=== PATIENT | female | born 1960 | race Caucasian/White ===

== ENCOUNTER 2017-10-10 10:33 | Inpatient (IN) ==
[2017-10-10] MEDS ORDERED: IPRATROPIUM/ALBUTEROL 3 ML AMPUL.NEB NEB ONE ×3 (10:43→10:51)
--- NOTE | 2017-10-10 11:02 | Emergency Department Note ---
SOB HPI - General Chief Complaint: Shortness of Breath/Dyspnea Stated Complaint: SOB, Sepsis workup Time Seen by Provider: 10/10/17 10:40 Source: patient, RN notes reviewed Mode of arrival: ambulatory Limitations: no limitations - History of Present Illness 56-year-old female presents with 3 weeks of worsening shortness of breath. She has cough and sputum production. She was seen at Dr. Mansfield's office today and was flu positive. She has been on Levaquin for 10 days and prednisone as well. Her last prednisone was 3 days ago. She has been hospitalized for her lungs in the past. She has asthma but no COPD is documented. She has been using nebulizer treatments at home which have helped for short amount of time. She has had fevers at home as well for the last 3 weeks. She has had some nausea vomiting and diarrhea as well. She denies chest pain at this time. She is diaphoretic. She had a heart attack 17 years ago but has not had issues with it since. No history of congestive heart failure. She does have diabetes. She had bilateral pneumonia on chest x-ray on the . She has been on Plavix for 17 years since her HI. No stents placed - Related Data Previous Rx's Medication Instructions Recorded spironolactone 25 mg tablet 25 mg PO QDAY #90 tab 07/09/16 nitroglycerin 0.4 mg sublingual 0.4 mg SUBLINGUAL Q5MIN PRN #25 tab 10/31/16 tablet albuterol sulfate HFA 90 90 mcg INHALATION Q6H PRN #54 g 06/13/17 mcg/actuation aerosol inhaler simvastatin 20 mg tablet 20 mg PO QPM 90 Days #90 tab 06/13/17 gabapentin 100 mg capsule 300 mg PO TID #270 cap 06/16/17 Nebulizer #1 each 07/14/17 amlodipine 5 mg tablet 5 mg PO QDAY #90 tab 07/15/17 benazepril 10 mg tablet 10 mg PO QDAY #90 tab 07/15/17 cyanocobalamin (vit B-12) 1,000 1,000 mcg IM QMONTH #10 ml 07/15/17 mcg/mL injection solution furosemide 40 mg tablet 40 mg PO BID #180 tab 07/15/17 levothyroxine 75 mcg capsule 75 mcg PO QDAY #90 cap 07/15/17 pantoprazole 40 mg tablet,delayed 40 mg PO QDAY #90 tab 07/15/17 release atenolol 25 mg tablet 25 mg PO QDAY #90 tab 07/16/17 clopidogrel 75 mg tablet 75 mg PO QDAY #90 tab 07/16/17 albuterol sulfate concentrate 2.5 2.5 mg INHALATION Q4H PRN #90 each 08/18/17 mg/0.5 mL solution for nebulization budesonide 0.5 mg/2 mL suspension 0.5 mg INHALATION Q12H #60 ml 08/18/17 for nebulization conjugated estrogens 1.25 mg tablet 1.25 mg PO QDAY #90 tab 09/16/17 hydrocodone 10 mg-acetaminophen 2 tab PO TID PRN #90 tab 09/16/17 325 mg tablet syringe with needle 3 mL 25 x 1 See Dose Instructions .ROUTE 09/16/17 1/2" .MEDSUPPLY #15 each alprazolam 0.5 mg tablet 0.5 mg PO TID #90 tab 09/26/17 levofloxacin 750 mg tablet 750 mg PO Q24H 7 Days #7 tab 10/07/17 fluticasone 100 mcg-vilanterol 25 1 inh INHALATION Q24H #30 each 10/10/17 mcg/dose powder for inhalation ibuprofen 400 mg tablet 400 mg PO Q6H #360 tab 10/10/17 Allergies Allergy/AdvReac Type Severity Reaction Status Date / Time acetaminophen Allergy Unknown Nausea Verified 10/10/17 09:30 morphine Allergy Unknown Anaphylaxis Verified 10/10/17 09:30 Penicillins Allergy Unknown Anaphylaxis Verified 10/10/17 09:30 Tetracyclines Allergy Unknown Hives Verified 10/10/17 09:30 Review of Systems All systems ED: reviewed and negative except as stated. Past Medical History - Past Medical History Medical history: Reports: asthma, coronary artery disease, DM, hyperlipidemia, hypertension, hypothyroidism, myocardial infarction (17 years ago). Denies: atrial fibrillation Psychiatric history: Reports: no psych history [employer] history: Reports: non-contributory Surgical history ED: Reports: appendectomy, cholecystectomy, tonsillectomy Family history: Reports: non-contributory - Social History smoking status: Current every day smoker Physical Exam Limitations: no limitations General appearance: alert, other (tachypneic) Head: atraumatic Eye: Present: normal appearance. Absent: conjunctival injection Neck: Present: normal inspection, full ROM Chest: Present: normal inspection, symmetric chest wall rise Respiratory: Present: wheezes (throughout lungs she has expiratory wheezes with coarse lung sounds in the upper lobes.) Cardiovascular: Present: tachycardia, normal heart sounds Abdominal: Present: soft, normal bowel sounds. Absent: tenderness Extremities: Present: normal inspection, full ROM Neurological: Present: alert, oriented X3 Psychiatric: Present: anxious Skin: Present: warm, dry, intact Course Course Narrative: She requires 2 liters of O2. She will be admitted. Started on IV Zithromax and Solu-medrol Vital Signs Temperature 98.6 F 10/10/17 10:34 Pulse Rate 111 H 10/10/17 10:34 Respiratory Rate 22 10/10/17 10:34 Blood Pressure 125/62 10/10/17 10:34 Pulse Oximetry (%) 89 L 10/10/17 10:34 Temperature 98.6 F 10/10/17 10:34 Pulse Rate 88 10/10/17 13:11 Respiratory Rate 20 10/10/17 13:11 Blood Pressure 133/89 10/10/17 13:11 Pulse Oximetry (%) 91 10/10/17 13:11 Shortness of Breath/Dyspnea - MDM Narrative Medical decision making narrative: White count was normal, lactic acid was normal, troponin was negative. - Lab Data Lab Results 10/10/17 10/10/17 10/10/17 Range/Units 09:53 11:20 12:36 VBG Lactic Acid 1.9 (0.5-2.2) mmol/L Troponin T < 0.01 (0-0.03) ng/ml Urine Color Yellow Urine Appearance Clear Urine pH 5.0 (5.0-9.0) Ur Specific [place] 1.017 (1.000-1.035) Urine Protein Neg (NEG) mg/dL Urine Glucose (UA) Negative (NEG) mg/dL Urine Ketones Neg (NEG) mg/dL Urine Occult Blood Neg (<0.03) mg/dL Urine Nitrate Neg (NEG) Urine Bilirubin Neg (NEG) mg/dL Urine Urobilinogen Neg (NEG) mg/dL Ur Leukocyte Esterase Neg (NEG) /uL Ur Culture Indicated? No - Radiology Data Radiology results reviewed: Yes I reviewed the patient's radiology results. Pleural effusions with resolution of infiltrates - EKG Data EKG attestation: Yes I reviewed and interpreted this EKG. EKG results narrative: Normal EKG Disposition Pt seen by GUINEA PIG BREEDER/PA only: Yes Clinical Impression: Influenza, COPD exacerbation Disposition: Xfer As Inpt ([facility]) Condition: Fair Referrals: Kt Beck MD [Primary Care Provider] -
[2017-10-10] MEDS ORDERED: methylPREDNISolone SOD SUCC 125 MG/2 ML VIAL IV ONE (11:05)
[2017-10-10] MEDS ORDERED: AZITHROMYCIN 500 MG in DEXTROSE 5% IN WATER 250 ML IV ONE (11:11)
[2017-10-10] MEDS ORDERED: OSELTAMIVIR PHOSPHATE 75 MG CAPSULE PO ONE (11:13)
[2017-10-10] MEDS ORDERED: 0.9 % SODIUM CHLORIDE 1,000 ML IV ONE (11:30)
--- NOTE | 2017-10-10 12:23 | XRay Report ---
CLINICAL INFORMATION: Shortness of breath COMPARISON: 10/01/2017 FINDINGS: Heart size, mediastinum and pulmonary vessels are normal. Bilateral infiltrates or edema, seen on previous study, have resolved. Small bilateral pleural effusions persist. IMPRESSION: Interval resolution in bilateral infiltrate or edema. Small persistent bilateral pleural effusions Interpreted and Authenticated by: Cristopher Cornelius 10/10/17
[2017-10-10] MEDS ORDERED: IBUPROFEN 800 MG TABLET PO ONE (12:27)
[2017-10-10] MEDS ORDERED: IBUPROFEN 200 MG TABLET PO ONE (12:30)
[2017-10-10 12:51] LABS: Appearance,Urine CLEAR; Bilirubin,Urine NEG (NEG); Color,Urine YELLOW; Glucose,Urine (UA) NEGATIVE (NEG); Leukocyte Esterase,Urine NEG /uL (NEG); Protein,Urine NEG (NEG); Specific Gravity,Urine 1.017 (1.000-1.035); Urine Blood NEG mg/dL (<0.03); Urobilinogen,Urine NEG (NEG)
[2017-10-10] MEDS ORDERED: FUROSEMIDE 20 MG/2 ML VIAL IV ONE (13:44)
[2017-10-10] MEDS ORDERED: ACETAMINOPHEN 325 MG TABLET PO PRN (14:59)
[2017-10-10] MEDS ORDERED: MAGNESIUM HYDROXIDE 30 ML ORAL.SUSP PO PRN (14:59)
[2017-10-10] MEDS ORDERED: ALPRAZolam 0.5 MG TABLET PO PRN (14:59)
[2017-10-10] MEDS ORDERED: ONDANSETRON 4 MG/2 ML VIAL IV PRN (14:59)
[2017-10-10] MEDS: 0.9 % SODIUM CHLORIDE 10 ML SYRINGE IV SCH ×2 (15:43→20:55)
[2017-10-10] MEDS: HYDROcodone/APAP 10/325MG TABLET PO PRN ×2 (15:43→20:32)
[2017-10-10] MEDS: GABAPENTIN 300 MG CAPSULE PO SCH ×2 (15:44→20:33)
[2017-10-10] MEDS: IPRATROPIUM/ALBUTEROL 3 ML AMPUL.NEB NEB SCH ×3 (16:01→23:25)
[2017-10-10] MEDS ORDERED: predniSONE 20 MG TABLET PO SCH (18:00)
[2017-10-10] MEDS: guaiFENesin/CODEINE 10 ML UDC PO PRN ×2 (18:29→22:52)
--- NOTE | 2017-10-10 20:43 | Internal Med History&Physical ---
Medical - H&P: [facility] Patient information: Note initiated : 10/10/17 at 8:08 pm Service Date, if different from initiated Date: [] Patient: Esperanza Irwin a 56 y/o F admitted on 10/10/17 for SOB, cough and general malaise. History of present illness: Ms. Irwin is a 56 year old F, with multiple medical problems including asthma, presented with persistent and worsening SOB and cough. Patient states that she has been having these respiratory symptoms for the last 3 weeks, requiring [id number] nebulized treatments the last few days. Patient has recently finished a [id number]-sja-[id number] of levofloxacin. She denies fever, chills and pleuritic pain. Patient has problems with allergies and is on nebulized treatments 1-3 times daily. Patient has a dog and birds in the house. She also smokes up to 10 cigs daily. However, patient states that allergies are caused by pollen and other other allergens. She has had no flu shot. Her 4-year-old grandchild has had URI symptoms around the same time. - Constitutional Constitutional: Absent: chills, fever(s) - Cardiovascular Cardiovascular: Absent: chest pain - Respiratory Respiratory: Present: cough, dyspnea on exertion, wheezing, chest congestion - Genitourinary Genitourinary: Absent: dysuria - Musculoskeletal Musculoskeletal: Present: back pain - Psychiatric Psychiatric: Absent: depression Medical - H&P: H Medical history: Tobacco abuse (Acute 07/28/14) smoking Obstructive sleep apnea (Acute) Pneumonia (Acute 10/19/14) Patellar fracture (Acute) Obesity (Acute) Myocardial infarction acute (Acute) Morbid obesity (Acute) Left knee pain (Acute) Hypothyroidism (acquired) (Acute 12/21/14) Hypertension, essential, benign (Acute) Hypertension (Acute 10/19/14) Hyperlipemia (Acute) Shingles rash (Acute 11/02/14) Herpes zoster dermatitis (Acute) eyelid Incisional hernia (Acute) Diverticulosis (Acute) Degenerative joint disease (Acute) (12/21/2014 Nixon) Left knee NOS Cough (Acute 10/19/14) History of colonic polyps (Acute) Cataract (Acute) incipient CAD (coronary artery disease) (Acute) Asthma with status asthmaticus (Acute 10/19/14) Asthma (Acute 12/21/14) Diabetes mellitus, type II (Ruled-out) Surgical history: Status post transposition of nerve (Acute) left ulnar nerve History of tonsillectomy (Acute) History of right knee surgery (Acute) NOS History of hysterectomy (Acute) KATY/BSO History of umbilical hernia repair (Acute) History of hernia repair (Acute) nos History of cholecystectomy (Acute) open History of (Acute) X3 History of right breast biopsy (Acute 06/04/13) History of left breast biopsy (Acute) History of appendectomy (Acute) History of adenoidectomy (Acute) Medical - H&P: Meds Home Medications Medication Instructions Recorded Confirmed Type spironolactone 25 mg tablet 25 mg PO QDAY #90 tab 07/09/16 10/10/17 Rx nitroglycerin 0.4 mg sublingual 0.4 mg SUBLINGUAL Q5MIN PRN #25 tab 10/31/1609/28 Rx tablet albuterol sulfate HFA 90 90 mcg INHALATION Q6H PRN #54 g 06/13/17 10/10/17 Rx mcg/actuation aerosol inhaler simvastatin 20 mg tablet 20 mg PO QPM 90 Days #90 tab 06/13/17 10/10/17 Rx gabapentin 100 mg capsule 300 mg PO TID #270 cap 06/16/17 10/10/17 Rx Nebulizer #1 each 07/14/17 10/10/17 Rx amlodipine 5 mg tablet 5 mg PO QDAY #90 tab 07/15/17 10/10/17 Rx benazepril 10 mg tablet 10 mg PO QDAY #90 tab 07/15/17 10/10/17 Rx cyanocobalamin (vit B-12) 1,000 1,000 mcg IM QMONTH #10 ml 07/15/17 10/10/17 Rx mcg/mL injection solution furosemide 40 mg tablet 40 mg PO BID #180 tab 07/15/17 10/10/17 Rx levothyroxine 75 mcg capsule 75 mcg PO QDAY #90 cap 07/15/17 10/10/17 Rx pantoprazole 40 mg tablet,delayed 40 mg PO QDAY #90 tab 07/15/17 10/10/17 Rx release atenolol 25 mg tablet 25 mg PO QDAY #90 tab 07/16/17 10/10/17 Rx clopidogrel 75 mg tablet 75 mg PO QDAY #90 tab 07/16/17 10/10/17 Rx albuterol sulfate concentrate 2.5 2.5 mg INHALATION Q4H PRN #90 each 08/18/17 Rx mg/0.5 mL solution for nebulization budesonide 0.5 mg/2 mL suspension 0.5 mg INHALATION Q12H #60 ml 08/18/17 Rx for nebulization conjugated estrogens 1.25 mg tablet 1.25 mg PO QDAY #90 tab 09/16/17 10/10/17 Rx hydrocodone 10 mg-acetaminophen 2 tab PO TID PRN #90 tab 09/16/17 10/10/17 Rx 325 mg tablet syringe with needle 3 mL 25 x 1 See Dose Instructions .ROUTE 09/16/17 10/10/17 Rx 1/2" .MEDSUPPLY #15 each alprazolam 0.5 mg tablet 0.5 mg PO TID #90 tab 09/26/17 10/10/17 Rx levofloxacin 750 mg tablet 750 mg PO Q24H 7 Days #7 tab 10/07/17 10/10/17 Rx fluticasone 100 mcg-vilanterol 25 1 inh INHALATION Q24H #30 each 10/10/17 Rx mcg/dose powder for inhalation ibuprofen 400 mg tablet 400 mg PO Q6H #360 tab 10/10/17 10/10/17 Rx Allergies Allergy/AdvReac Type Severity Reaction Status Date / Time acetaminophen Allergy Unknown Nausea Verified 10/10/17 09:30 morphine Allergy Unknown Anaphylaxis Verified 10/10/17 09:30 Penicillins Allergy Unknown Anaphylaxis Verified 10/10/17 09:30 Tetracyclines Allergy Unknown Hives Verified 10/10/17 09:30 codeine AdvReac Mild Itching Verified 10/10/17 16:53 Medical - H&P: Exam - Constitutional Vitals: Temp Pulse Resp BP Pulse Ox 99.4 F H 90 20 132/84 92 10/10/17 16:00 10/10/17 19:39 10/10/17 19:39 10/10/17 16:00 10/10/17 19:41 General appearance: mild distress, morbidly obese - Head Head exam: Present: normal inspection - Neck Neck exam: Present: normal inspection - Respiratory Respiratory exam: Present: prolonged expiratory phase, wheezes. Absent: accessory muscle use - Cardiovascular Cardiovascular exam: Present: normal rate and rhythm - GI/Abdominal GI/Abdominal exam: Present: normal bowel sounds - Extremities Exam Extremities exam: Present: pedal edema Medical - H&P: Reslt - Labs Labs: Cardiac Enzymes 10/10/17 Range/Units 09:53 Troponin T < 0.01 (0-0.03) ng/ml Urine 10/10/17 Range/Units 12:36 Urine Color Yellow Urine Appearance Clear Urine pH 5.0 (5.0-9.0) Ur Specific [place] 1.017 (1.000-1.035) Urine Protein Neg (NEG) mg/dL Urine Glucose (UA) Negative (NEG) mg/dL - ABG Interpretation Additional comments: pH 7.39 pCO2 43 pO2 66 sats 93% - Imaging and Cardiology Chest x-ray Additional comments: CXR: CLINICAL INFORMATION: Shortness of breath COMPARISON: 10/01/2017 FINDINGS: Heart size, mediastinum and pulmonary vessels are normal. Bilateral infiltrates or edema, seen on previous study, have resolved. Small bilateral pleural effusions persist. IMPRESSION: Interval resolution in bilateral infiltrate or edema. Small persistent bilateral pleural effusions Medical - H&P: A/P - Narrative A/P Narrative: 56-year-old female admitted 10/10 with following problems: + Exacerbation of asthma most likely related to URI/pneumonia possibly persistent asthma due to smoking and exposure to animal dander + Acute bronchitis/pneumonia most likely viral CXR showed resolving pneumonia + HTN + Morbid Obesity states that repeat sleepstudy didn't show THANH. + Chronic back pain PLAN: nebulized treatments Azithromycin empirically Continue home meds for HTN and chronic pain DVT prophylaxis: Lovenox Code status: full Medical - H&P: Qual - VTE Deep Vein Thrombosis/Pulmonary Embolism Present on Admission: No
[2017-10-10] MEDS ORDERED: FLUTICASONE/SALMETEROL 500/50 INHALER #14 INH SCH (21:00)
[2017-10-10] MEDS ORDERED: PANTOPRAZOLE 40 MG TABLET PO SCH (21:00)
[2017-10-11] MEDS: HYDROcodone/APAP 10/325MG TABLET PO PRN ×3 (00:37→23:23)
[2017-10-11] MEDS ORDERED: ONDANSETRON 4 MG/2 ML VIAL IV PRN (00:40)
[2017-10-11] MEDS ORDERED: MAGNESIUM HYDROXIDE 30 ML ORAL.SUSP PO PRN (00:40)
[2017-10-11] MEDS ORDERED: ACETAMINOPHEN 325 MG TABLET PO PRN (00:40)
[2017-10-11] MEDS ORDERED: HYDROmorphone 2 MG/ML VIAL ONE ×2 (00:51→03:57)
[2017-10-11] MEDS: HYDROmorphone 2 MG/ML VIAL IV PRN ×3 (04:04→18:56)
[2017-10-11] MEDS: 0.9 % SODIUM CHLORIDE 10 ML SYRINGE IV SCH ×3 (05:15→23:03)
[2017-10-11 05:17] LABS: Basophils # (Auto) 0 K/mcL (0.0-0.3); Basophils % (Auto) 0 % (0.0-2.0); Eosinophils # (Auto) 0.3 K/mcL (0.0-0.7); Eosinophils % (Auto) 3.3 % (0.0-7.0); Granulocytes % (Auto) 86.4 % (38.0-78.0); Lymphocytes # (Auto) 0.5 K/mcL (1.5-4.8); Lymphocytes % (Auto) 5.7 % (15.5-49.0); Mean Cell Volume 94.1 fL (80.0-100.0); Mean Corpuscular HGB Conc 32.8 g/dL (31.0-36.0); Mean Corpuscular Hemoglobin 30.9 pg (26.0-34.0); Monocytes # (Auto) 0.4 K/mcL (0.1-0.9); Monocytes % (Auto) 4.6 % (1.0-12.0); Platelet Count 237 K/mcL (140-440); RBC 4.97 M/mcL (4.00-5.20); Red Cell Distribution Width 14.8 % (11.5-14.5)
[2017-10-11 05:51] LABS: Albumin 4.1 gm/dL (3.2-5.2); Blood Urea Nitrogen 17 mg/dl (6-20)
[2017-10-11] MEDS ORDERED: PANTOPRAZOLE 40 MG TABLET PO SCH ×3 (07:30→09:00)
[2017-10-11] MEDS: ALPRAZolam 0.5 MG TABLET PO PRN ×2 (07:32→18:56)
[2017-10-11] MEDS: PANTOPRAZOLE 40 MG TABLET PO SCH (07:33)
[2017-10-11] MEDS: FUROSEMIDE 40 MG TABLET PO SCH ×2 (07:33→20:47)
[2017-10-11] MEDS: LEVOTHYROXINE 75 MCG TABLET PO SCH (07:33)
[2017-10-11] MEDS: predniSONE 20 MG TABLET PO SCH (07:38)
[2017-10-11] MEDS: ATENOLOL 50 MG TABLET PO SCH (07:44)
[2017-10-11] MEDS: ENOXAPARIN 40 MG/0.4 ML SYRINGE SQ SCH (07:45)
[2017-10-11] MEDS: CLOPIDOGREL 75 MG TABLET PO SCH (07:45)
[2017-10-11] MEDS: GABAPENTIN 300 MG CAPSULE PO SCH ×3 (07:45→20:47)
[2017-10-11] MEDS ORDERED: SODIUM POLYSTYRENE SULFONATE 15 GM/60 ML SUSPENSION PO ONE (08:11)
[2017-10-11] MEDS: IPRATROPIUM/ALBUTEROL 3 ML AMPUL.NEB NEB SCH ×5 (08:29→23:05)
[2017-10-11] MEDS: FLUTICASONE/SALMETEROL 500/50 INHALER #14 INH SCH ×2 (08:59→20:42)
[2017-10-11] MEDS ORDERED: BENAZEPRIL 10 MG TABLET PO SCH (09:00)
[2017-10-11] MEDS ORDERED: ENOXAPARIN 40 MG/0.4 ML SYRINGE SQ SCH (09:00)
[2017-10-11] MEDS ORDERED: CLOPIDOGREL 75 MG TABLET PO SCH (09:00)
[2017-10-11] MEDS ORDERED: amLODIPine 5 MG TABLET PO SCH ×2 (09:00)
[2017-10-11] MEDS ORDERED: ATENOLOL 25 MG TABLET PO SCH (09:00)
[2017-10-11] MEDS ORDERED: LEVOTHYROXINE SODIUM 75 MCG PO SCH (09:00)
[2017-10-11] MEDS ORDERED: LISINOPRIL 10 MG TABLET PO SCH (09:00)
[2017-10-11] MEDS ORDERED: FUROSEMIDE 40 MG TABLET PO SCH (09:00)
[2017-10-11] MEDS: amLODIPine 10 MG TABLET PO SCH (09:03)
[2017-10-11] MEDS: AZITHROMYCIN 250 MG in DEXTROSE 5% IN WATER 250 ML IV SCH (09:31)
[2017-10-11] MEDS: guaiFENesin/CODEINE 10 ML UDC PO PRN (15:05)
[2017-10-11] MEDS: IBUPROFEN 800 MG TABLET PO PRN ×2 (17:23→23:23)
--- NOTE | 2017-10-11 18:28 | Internal Med Progress Note ---
Medical - PN: Subj Patient information: Note initiated : 10/11/17 at 5:58 pm Service Date, if different from initiated Date: [] Patient: Esperanza Irwin a 56 y/o F admitted on 10/11/17 for SOB, and cough. History of present illness: Ms. Irwin is a 56 year old F, with multiple medical problems including asthma, presented with persistent and worsening SOB and cough. Patient states that she has been having these respiratory symptoms for the last 3 weeks, requiring [id number] nebulized treatments the last few days. Patient has recently finished a [id number] of levofloxacin. She denies fever, chills and pleuritic pain. Patient has problems with allergies and is on nebulized treatments 1-3 times daily. Patient has a dog and birds in the house. She also smokes up to 10 cigs daily. However, patient states that allergies are caused by pollen and other other allergens. She has had no flu shot. Her 4-year-old grandchild has had URI symptoms around the same time. Interval history: Admitted 10/11 with following problems: + Exacerbation of asthma most likely related to URI/pneumonia possibly persistent asthma due to smoking and exposure to animal dander + Acute bronchitis/pneumonia most likely viral CXR showed resolving pneumonia + HTN + Morbid Obesity states that repeat sleepstudy didn't show THANH. + Chronic back pain Overnight developed worsening SOB a/w high oxygen requirement to 15 L. Patient transferred to tele unit for closer observation, and BiPAP support October 11: Had stable night on BiPAP, got few hours sleep. This am, breathing better. Still requiring 8L oxygen via HFNC Minimal cough. Afebrile. - Constitutional Vitals: Vital Signs Temp Pulse Resp BP Pulse Ox 96.1 F L 65 24 H 115/75 93 10/11/17 15:30 10/11/17 15:23 10/11/17 15:30 10/11/17 15:30 10/11/17 15:30 Period Temp Pulse Resp BP Sys/Cortés Pulse Ox Last 24 Hr 96.1 F-98.0 F 65-92 14-95 96-154/43-103 88-95 Intake and Output 10/11/17 10/11/17 10/11/17 05:59 13:59 21:59 Intake Total 1050 / 1050 846 / 846 1320 / 1320 Output Total 550 / 550 150 / 150 Balance 500 / 500 846 / 846 1170 / 1170 Intake & Output: Intake & Output 10/11/17 10/11/17 10/11/17 05:59 13:59 21:59 Intake Total 1050 / 1050 846 / 846 1320 / 1320 Output Total 550 / 550 150 / 150 Balance 500 / 500 846 / 846 1170 / 1170 Intake: IV 246 / 246 Zithromax 250 mg In Dextrose 5% 246 / 246 in Water 250 ml @ 250 mls/hr IV Q24H [facility] Rx#:[id number] Oral 1050 / 1050 600 / 600 1320 / 1320 Output: Void Amount 550 / 550 150 / 150 Other: Meal Lunch Dinner Percent of Meal Consumed 50% 75% Feeding Ability Independent Stool Size Small Stool Color Brown Stool Consistency Soft # Voids 1 1 # Bowel Movements 1 General appearance: mild distress - Respiratory Respiratory exam: Present: prolonged expiratory phase, wheezes - Cardiovascular Cardiovascular exam: Present: normal rate and rhythm - GI/Abdominal GI/Abdominal exam: Present: normal bowel sounds, soft - Extremities Exam Extremities exam: Present: normal inspection Medical - PN: Obj Da - Labs CBC & Chem 7: 10/11/17 03:30 10/11/17 03:30 Labs: Abnormal Lab Results 10/11/17 10/11/17 03:30 03:30 Hgb 15.3 H RDW 14.8 H Gran % 86.4 H Lymph % (Auto) 5.7 L Lymph # (Auto) 0.5 L Sodium 131 L Potassium 5.9 H* Chloride 94 L Glucose 137 H Phosphorus 4.8 H Meds: Medications Acetaminophen (Tylenol) 650 mg PO Q6HP PRN PRN Reason: PAIN/FEVER > 101 Last Admin: 10/11/17 09:03 Dose: 650 mg Hydrocodone Bitart/Acetaminophen ([place] 10/325mg) 2 tab PO TIDP PRN PRN Reason: PAIN LEVEL 3-6 Albuterol/Ipratropium (Duoneb) 3 ml NEB [id number] LEXIE Last Admin: 10/11/17 15:22 Dose: 3 ml Alprazolam (Xanax) 0.5 mg PO TIDP PRN PRN Reason: Anxiety Last Admin: 10/11/17 07:32 Dose: 0.5 mg Amlodipine Besylate (Norvasc) 10 mg PO DAILY [facility] Last Admin: 10/11/17 09:03 Dose: 10 mg Atenolol (Tenormin) 50 mg PO DAILY [facility] Last Admin: 10/11/17 07:44 Dose: 50 mg Clopidogrel Bisulfate (Plavix) 75 mg PO QDAY [facility] Last Admin: 10/11/17 07:45 Dose: 75 mg Enoxaparin Sodium (Lovenox) 40 mg SQ DAILY [facility] Last Admin: 10/11/17 07:45 Dose: 40 mg Furosemide (Lasix) 40 mg PO BID [facility] Last Admin: 10/11/17 07:33 Dose: 40 mg Gabapentin (Neurontin) 300 mg PO TID [facility] Last Admin: 10/11/17 15:05 Dose: 300 mg Guaifenesin/Codeine Phosphate (Robitussin Ac) 10 ml PO Q4HP PRN PRN Reason: Cough Last Admin: 10/11/17 15:05 Dose: 10 ml Hydromorphone HCl (Dilaudid) 0 mg IV Q4HP PRN PRN Reason: PAIN LEVEL > 6 Last Admin: 10/11/17 07:36 Dose: 2 mg Azithromycin 250 mg/ Dextrose 250 mls @ 250 mls/hr IV Q24H [facility] Stop: 10/13/17 10:59 Last Infusion: 10/11/17 10:30 Dose: 250 mls/hr Ibuprofen (Motrin) 800 mg PO TIDP PRN PRN Reason: Headache Last Admin: 10/11/17 17:23 Dose: 800 mg [facility] Last Admin: 10/11/17 07:33 Dose: 75 mcg Magnesium Hydroxide (Milk Of Magnesia) 30 ml PO DAILYP PRN PRN Reason: Constipation Ondansetron HCl (Zofran) 4 mg IV Q6HP PRN PRN Reason: Nausea And Vomiting Pantoprazole [facility]ix) [facility] Last Admin: 10/11/17 07:33 Dose: 40 mg Prednisone (Prednisone) 40 mg PO QAMCC [facility] Last Admin: 10/11/17 07:38 Dose: 40 mg Fluticasone/Salmeterol (Advair 500-50 Diskus) 1 puff INH BID [facility] Last Admin: 10/11/17 08:59 Dose: Not Given Sodium Chloride (Saline Flush) 10 ml IV Q8 [place] Last Admin: 10/11/17 13:58 Dose: 10 ml Medical - PN: A/P - Time Spent With Patient Total time spent is greater than 50% in coordination of care (as documented) at patient's floor/unit and/or counseling patient: 25 - 35 minutes - Narrative A/P Narrative: + Exacerbation of asthma most likely related to URI/pneumonia possibly persistent asthma due to smoking and exposure to animal dander Continue neb treatment, prednisone, BIPAP as needed Check pro-BNP. R/O cardiac asthma. + Acute bronchitis/pneumonia most likely viral CXR showed resolving pneumonia Azithromycin continue + HTN Continue home meds + Morbid Obesity states that repeat sleepstudy didn't show THANH. + Chronic back pain Continue home meds + Hyperkalemia kayexelate given FU lab DVT prophylaxis: Lovenox Code status: Full Medical - PN: Qual - VTE Deep Vein Thrombosis/Pulmonary Embolism Present on Admission: No
[2017-10-12] MEDS: HYDROcodone/APAP 10/325MG TABLET PO PRN ×2 (04:31→19:33)
[2017-10-12] MEDS: IBUPROFEN 800 MG TABLET PO PRN (04:32)
[2017-10-12] MEDS: guaiFENesin/CODEINE 10 ML UDC PO PRN (04:37)
[2017-10-12 05:47] LABS: Albumin 3.7 gm/dL (3.2-5.2); proBNP 295.3 pg/ml (0-125)
[2017-10-12] MEDS: 0.9 % SODIUM CHLORIDE 10 ML SYRINGE IV SCH ×4 (05:58→20:10)
[2017-10-12] MEDS: HYDROmorphone 2 MG/ML VIAL IV PRN (07:15)
[2017-10-12] MEDS: ALPRAZolam 0.5 MG TABLET PO PRN ×2 (07:15→08:33)
[2017-10-12] MEDS: LEVOTHYROXINE 75 MCG TABLET PO SCH (07:19)
[2017-10-12] MEDS: IPRATROPIUM/ALBUTEROL 3 ML AMPUL.NEB NEB SCH ×5 (07:32→22:41)
[2017-10-12] MEDS: predniSONE 20 MG TABLET PO SCH (08:33)
[2017-10-12] MEDS: AZITHROMYCIN 250 MG in DEXTROSE 5% IN WATER 250 ML IV SCH (08:33)
[2017-10-12] MEDS: GABAPENTIN 300 MG CAPSULE PO SCH ×3 (08:34→20:10)
[2017-10-12] MEDS: PANTOPRAZOLE 40 MG TABLET PO SCH (08:34)
[2017-10-12] MEDS: CLOPIDOGREL 75 MG TABLET PO SCH (08:34)
[2017-10-12] MEDS: amLODIPine 10 MG TABLET PO SCH (08:35)
[2017-10-12] MEDS: ATENOLOL 50 MG TABLET PO SCH (08:35)
[2017-10-12] MEDS: ENOXAPARIN 40 MG/0.4 ML SYRINGE SQ SCH (08:35)
[2017-10-12] MEDS: FLUTICASONE/SALMETEROL 500/50 INHALER #14 INH SCH ×2 (08:35→20:22)
[2017-10-12] MEDS: FUROSEMIDE 40 MG TABLET PO SCH ×2 (08:37→20:10)
[2017-10-12] MEDS ORDERED: IBUPROFEN 800 MG TABLET PO PRN (10:52)
[2017-10-12] MEDS ORDERED: ACETAMINOPHEN 325 MG TABLET PO PRN (10:52)
--- NOTE | 2017-10-12 12:11 | Internal Med Progress Note ---
Medical - PN: Subj Patient information: Note initiated : 10/12/17 at 12:07 pm Service Date, if different from initiated Date: [] Patient: Esperanza Irwin 56 y/o F admitted on 10/11/17 for SOB, Sepsis workup. Interval history: Admitted 10/11 with following problems: + Exacerbation of asthma most likely related to URI/pneumonia possibly persistent asthma due to smoking and exposure to animal dander + Acute bronchitis/pneumonia most likely viral CXR showed resolving pneumonia + HTN + Morbid Obesity states that repeat sleepstudy didn't show THANH. + Chronic back pain Overnight developed worsening SOB a/w high oxygen requirement to 15 L. Patient transferred to tele unit for closer observation, and BiPAP support October 11: Had stable night on BiPAP, got few hours sleep. This am, breathing better. Still requiring 8L oxygen via HFNC Minimal cough. Afebrile. October 12: Still on 8L O2. Feeling slightly better. C/O CORONADO due to coughing Didn't want use the BIPAP last night. Hemodynamics stable Will transfer to med floor - Constitutional Vitals: Vital Signs Temp Pulse Resp BP Pulse Ox 97.1 F 84 18 96/59 92 10/12/17 08:00 10/12/17 08:00 10/12/17 08:00 10/12/17 08:00 10/12/17 08:00 Period Temp Pulse Resp BP Sys/Cortés Pulse Ox Last 24 Hr 96.1 F-97.4 F 65-84 18-24 96-130/59-75 90-95 Intake and Output 10/11/17 10/12/17 10/12/17 21:59 05:59 13:59 Intake Total 1320 / 1320 800 / 800 Output Total 150 / 150 750 / 750 Balance 1170 / 1170 50 / 50 Weight 297 lb Intake & Output: Intake & Output 10/11/17 10/12/17 10/12/17 21:59 05:59 13:59 Intake Total 1320 / 1320 800 / 800 Output Total 150 / 150 750 / 750 Balance 1170 / 1170 50 / 50 Weight 297 lb Intake: Oral 1320 / 1320 800 / 800 Output: Void Amount 150 / 150 750 / 750 Other: Meal Dinner Percent of Meal Consumed 75% Feeding Ability Independent Stool Size Small Stool Color Brown Stool Consistency Soft # Voids 1 # Bowel Movements 1 General appearance: mild distress, morbidly obese - Respiratory Respiratory exam: Present: prolonged expiratory phase. Absent: accessory muscle use - Cardiovascular Cardiovascular exam: Present: normal rate and rhythm - GI/Abdominal GI/Abdominal exam: Present: soft - Extremities Exam Extremities exam: Absent: calf tenderness Medical - PN: Obj Da - Labs CBC & Chem 7: 10/11/17 03:30 10/12/17 03:50 Labs: Abnormal Lab Results 10/12/17 10/11/17 10/11/17 03:50 03:30 03:30 Hgb 15.3 H RDW 14.8 H Gran % 86.4 H Lymph % (Auto) 5.7 L Lymph # (Auto) 0.5 L Sodium 131 L Potassium 5.2 H 5.9 H* Chloride 92 L 94 L Carbon Dioxide 32 H BUN 25 H Glucose 137 H Calcium 8.2 L Phosphorus 4.6 H 4.8 H NT-Pro-B Natriuret Pep 295.3 H Meds: Medications Acetaminophen (Tylenol) 650 mg PO Q6HP PRN PRN Reason: PAIN/FEVER > 101 Hydrocodone Bitart/Acetaminophen ([place] 10/325mg) 2 tab PO TIDP PRN PRN Reason: PAIN LEVEL 3-6 Albuterol/Ipratropium (Duoneb) 3 ml NEB [id number] [facility] Alprazolam (Xanax) 0.5 mg PO TIDP PRN PRN Reason: Anxiety Amlodipine Besylate (Norvasc) 10 mg PO DAILY [facility] Atenolol (Tenormin) 50 mg PO DAILY [facility] Azithromycin (Zithromax) 250 mg PO ONCE ONE Stop: 10/13/17 09:04 Clopidogrel Bisulfate (Plavix) 75 mg PO QDAY [facility] Enoxaparin Sodium (Lovenox) 40 mg SQ DAILY [facility] Furosemide (Lasix) 40 mg PO BID [facility] Gabapentin (Neurontin) 300 mg PO TID [facility] Guaifenesin/Codeine Phosphate (Robitussin Ac) 10 ml PO Q4HP PRN PRN Reason: Cough Ibuprofen (Motrin) 800 mg PO TIDP PRN PRN Reason: Headache Levothyroxine Sodium (Synthroid) 75 mcg PO QAMAC [facility] Magnesium Hydroxide (Milk Of Magnesia) 30 ml PO DAILYP PRN PRN Reason: Constipation Ondansetron HCl (Zofran Odt) 4 mg SL Q6HP PRN PRN Reason: Nausea And Vomiting Pantoprazole Sodium (Protonix) 40 mg PO QAMAC [facility] Prednisone (Prednisone) 40 mg PO QAMCC [facility] Fluticasone/Salmeterol (Advair 500-50 Diskus) 1 puff INH BID [facility] Sodium Chloride (Saline Flush) 10 ml IV Q8 [facility] Medical - PN: A/P - Time Spent With Patient Total time spent is greater than 50% in coordination of care (as documented) at patient's floor/unit and/or counseling patient: 25 - 35 minutes - Narrative A/P Narrative: + Exacerbation of asthma most likely related to URI/pneumonia. Finished course of Levofloxacin as outpt. CXR: resolved pneumonia possibly persistent asthma due to smoking and exposure to animal dander Continue neb treatment, prednisone, BIPAP as needed pro-BNP: wnl + Acute bronchitis/pneumonia most likely viral CXR showed resolving pneumonia Azithromycin continue + HTN Continue home meds + Morbid Obesity states that repeat sleepstudy didn't show THANH. + Chronic back pain Continue home meds + Hyperkalemia kayexelate given x / FU lab DVT prophylaxis: Lovenox Code status: Full Medical - PN: Qual - VTE Deep Vein Thrombosis/Pulmonary Embolism Present on Admission: No
[2017-10-12] MEDS: ONDANSETRON ODT 4 MG TABLET SL PRN (18:38)
[2017-10-12] MEDS ORDERED: KETOROLAC 30 MG/ML VIAL IV ONE (19:47)
[2017-10-12] MEDS ORDERED: ACETAMINOPHEN 1,000 MG/100 ML BOTTLE IV ONE (19:48)
[2017-10-12] MEDS ORDERED: KETOROLAC 30 MG/ML VIAL ONE (19:58)
[2017-10-12] MEDS ORDERED: FAMOTIDINE/PF 20 MG/2 ML VIAL IV ONE (19:58)
[2017-10-12] MEDS: FAMOTIDINE/PF 20 MG/2 ML VIAL IV SCH ×2 (20:09→21:12)
[2017-10-12] MEDS: OXYMETAZOLINE 1 SPRAY BOTTLE NAS SCH (20:10)
[2017-10-13] MEDS: KETOROLAC 15 MG/ML VIAL IV PRN ×4 (01:36→19:43)
[2017-10-13] MEDS: ONDANSETRON 4 MG/2 ML VIAL IV PRN ×3 (01:45→19:43)
[2017-10-13] MEDS: HYDROcodone/APAP 10/325MG TABLET PO PRN ×3 (02:48→14:44)
[2017-10-13] MEDS: guaiFENesin/CODEINE 10 ML UDC PO PRN (02:48)
[2017-10-13] MEDS: ACETAMINOPHEN 1,000 MG/100 ML BOTTLE IV PRN (06:01)
[2017-10-13] MEDS: 0.9 % SODIUM CHLORIDE 10 ML SYRINGE IV SCH ×3 (06:02→21:53)
[2017-10-13 06:44] LABS: Basophils # (Auto) 0 K/mcL (0.0-0.3); Basophils % (Auto) 0.2 % (0.0-2.0); Eosinophils # (Auto) 0.1 K/mcL (0.0-0.7); Eosinophils % (Auto) 1.5 % (0.0-7.0); Granulocytes % (Auto) 67.1 % (38.0-78.0); Lymphocytes # (Auto) 1.4 K/mcL (1.5-4.8); Lymphocytes % (Auto) 20.7 % (15.5-49.0); Mean Cell Volume 91.5 fL (80.0-100.0); Mean Corpuscular HGB Conc 32.5 g/dL (31.0-36.0); Mean Corpuscular Hemoglobin 29.8 pg (26.0-34.0); Monocytes # (Auto) 0.7 K/mcL (0.1-0.9); Monocytes % (Auto) 10.5 % (1.0-12.0); Platelet Count 178 K/mcL (140-440); RBC 4.88 M/mcL (4.00-5.20); Red Cell Distribution Width 13.5 % (11.5-14.5)
[2017-10-13 06:45] LABS: ALT/SGPT 72 U/l (0-40); Albumin 3.3 gm/dL (3.2-5.2); Albumin/Globulin Ratio 1.1 (1.0-2.3); Alkaline Phosphatase 52 U/L (39-117); Bilirubin,Direct < 0.2 mg/dL (0.0-0.3); Blood Urea Nitrogen 16 mg/dl (6-20); Gamma Glutamyl Transpeptidase 49 U/L (5-36); Uric Acid 4.4 mg/dL (2.5-8.0)
[2017-10-13] MEDS: LEVOTHYROXINE 75 MCG TABLET PO SCH (07:08)
[2017-10-13] MEDS: PANTOPRAZOLE 40 MG TABLET PO SCH (07:08)
[2017-10-13] MEDS: IPRATROPIUM/ALBUTEROL 3 ML AMPUL.NEB NEB SCH ×5 (07:30→23:37)
[2017-10-13] MEDS ORDERED: IOPAMIDOL 100 ML BOTTLE IV ONE (08:58)
[2017-10-13] MEDS ORDERED: AZITHROMYCIN 250 MG TABLET PO ONE (09:03)
[2017-10-13] MEDS: FUROSEMIDE 40 MG TABLET PO SCH ×2 (09:05→21:51)
[2017-10-13] MEDS: CLOPIDOGREL 75 MG TABLET PO SCH (09:05)
[2017-10-13] MEDS: ATENOLOL 50 MG TABLET PO SCH (09:05)
[2017-10-13] MEDS: amLODIPine 10 MG TABLET PO SCH (09:05)
[2017-10-13] MEDS: GABAPENTIN 300 MG CAPSULE PO SCH ×3 (09:05→21:51)
[2017-10-13] MEDS: ALPRAZolam 0.5 MG TABLET PO PRN ×2 (09:05→22:00)
[2017-10-13] MEDS: predniSONE 20 MG TABLET PO SCH (09:05)
[2017-10-13] MEDS: OXYMETAZOLINE 1 SPRAY BOTTLE NAS SCH ×2 (09:06→21:56)
[2017-10-13] MEDS: FLUTICASONE/SALMETEROL 500/50 INHALER #14 INH SCH ×2 (09:06→21:55)
[2017-10-13] MEDS: ENOXAPARIN 40 MG/0.4 ML SYRINGE SQ SCH (09:06)
--- NOTE | 2017-10-13 09:10 | Cat Scan Report ---
History: Sepsis and shortness of breath Findings: The face was imaged in axial plane without contrast. Coronal reformats were created. There is minor mucosal thickening along the floor left maxillary sinus. No air-fluid level is present. The right maxillary sinus is clear. The right lateral recess of the sphenoid sinus is nearly completely opacified. There is a hypoplastic lateral recess of the left sphenoid sinus. This is also nearly completely opacified. The central and dominant portion of the sphenoid sinus is clear and normally aerated. There is mild mucosal thickening along the truong of a couple ethmoid air cells bilaterally. Is also mucosal thickening in the inferior recess of the left frontal sinus. Right frontal sinus is clear. The mastoids are clear. Nasal septum is deviated to left. Kristina bullosa is seen in the right middle nasal turbinate. No abnormality seen within the orbits. No facial abscess is present. Impression: Moderate bilateral sphenoid sinusitis with minor ethmoid, left maxillary and left frontal sinusitis Interpreted and Authenticated by: Mic Rosales 10/13/17
--- NOTE | 2017-10-13 09:27 | Cat Scan Report ---
CLINICAL INFORMATION: Reason for Exam: hypoxia, Pulmonary embolism , sepsis COMPARISON: None TECHNIQUE: Axial images obtained through the chest. Intravenous contrast administration was administered, and scanning was performed during pulmonary arterial phase. Sagittally and coronally reformatted images were obtained. MIP reformatted images. FINDINGS: The pulmonary arteries are normal without evidence of emboli. The heart is normal in size and contour. There is a moderate amount calcified plaque in the left anterior descending and right coronary artery. There is milder involvement in the circumflex artery. The aorta is normal in caliber. There are eccentric plaques along the wall of the aortic arch. There is no dissection or aneurysm of the aorta. There is a mosaic pattern of groundglass alveolar infiltrates throughout much of the left upper lobe and lingula. There is minor involvement in the right upper lobe and medial basal segment left lower lobe. No lobar consolidation is present. There is minor emphysema in both upper lobes. There are three small well-circumscribed peripheral nodules laterally in the right upper lobe. The largest is pleural-based and measures 5 x 7 mm. Is seen on axial image #38. There are a few bands of scar or discoid atelectasis in the right middle lobe and posteriorly and medially in the right upper lobe. No pleural or pericardial effusion are present. The airways appear normal without intraluminal filling defects or abnormal thickening of the truong. Degenerative disc disease and arthritis are present throughout the thoracic spine. There is a large spur on the posterior border of the T7-8 disc which protrudes into the central canal. The degenerative changes have remained stable since the prior thoracic spine MRI done on 01/25/16. IMPRESSION: Groundglass alveolar infiltrates, predominantly involving the left upper lobe and lingula. This is a nonspecific pattern which can be seen with bacterial pneumonia, pneumocystis or cytomegalovirus. Other considerations would include the inflammatory phase of idiopathic pulmonary fibrosis, connective tissue disease such as lupus, eosinophilic pneumonia, sarcoidosis, hypersensitivity pneumonitis and bronchiolitis obliterans organizing pneumonia. Small subpleural nodules laterally in the right upper lobe. These are too small to characterize or biopsy but are more likely benign than malignant. Follow-up is recommended. Moderate atherosclerotic coronary artery disease Early stage of emphysema Interpreted and Authenticated by: Mic Rosales 10/13/17
--- NOTE | 2017-10-13 11:36 | Internal Med Progress Note ---
Medical - PN: Subj Patient information: Note initiated : 10/13/17 at 11:34 am Service Date, if different from initiated Date: [] Patient: Esperanza Irwin 56 y/o F admitted on 10/11/17 for SOB, Sepsis Workup/Exacerbation of Asthma. Chief Complaint: [] Interval history: Admitted 10/11 with following problems: + Exacerbation of asthma most likely related to URI/pneumonia possibly persistent asthma due to smoking and exposure to animal dander + Acute bronchitis/pneumonia most likely viral CXR showed resolving pneumonia + HTN + Morbid Obesity states that repeat sleepstudy didn't show THANH. + Chronic back pain Overnight developed worsening SOB a/w high oxygen requirement to 15 L. Patient transferred to tele unit for closer observation, and BiPAP support October 11: Had stable night on BiPAP, got few hours sleep. This am, breathing better. Still requiring 8L oxygen via HFNC Minimal cough. Afebrile. October 12: Still on 8L O2. Feeling slightly better. C/O CORONADO due to coughing Didn't want use the BIPAP last night. Hemodynamics stable Will transfer to med floor October 13 patient seen examined, no acute overnight events, still on oxygen bottle of xanax found with the patient , pt denies using these meds at hoem, but it seems that there were periods when she was difficult to arouse will not use IV narcotic pain meds and try to verify dosing of oral narcotis too ct chest done neg for pe, does show ? fibrosis, inflammation, infection . CT Sinus done shows sinusitis treated with antibiotics levoflox and zithromax. Procalcitonin is neg Will just use bactrim for sinusitis for now given she is complaining of symptoms , Will likely need repeat CT chest later to see if this is resolved She is still wheezing and needing high levels of oxygen. continue steroids and duonebs. Pertinent ROS: present headache, Denies chest pain, palpitations Present cough and shortness of breath Denies abdominal pain, nausea or vomiting. - Constitutional Vitals: Vital Signs Temp Pulse Resp BP Pulse Ox 98.4 F 78 18 146/78 94 10/13/17 06:15 10/13/17 08:25 10/13/17 08:25 10/13/17 06:15 10/13/17 08:25 Period Temp Pulse Resp BP Sys/Cortés Pulse Ox Last 24 Hr 95.4 F-98.7 F 71-94 12-28 118-169/78-100 90-96 Intake and Output 10/12/17 10/13/17 10/13/17 21:59 05:59 13:59 Intake Total 800 / 800 300 / 300 100 / 100 Output Total 1250 / 1250 350 / 350 Balance -450 / -450 -50 / -50 100 / 100 Weight 301 lb Intake & Output: Intake & Output 10/12/17 10/13/17 10/13/17 21:59 05:59 13:59 Intake Total 800 / 800 300 / 300 100 / 100 Output Total 1250 / 1250 350 / 350 Balance -450 / -450 -50 / -50 100 / 100 Weight 301 lb Intake: IV 100 / 100 100 / 100 Oral 800 / 800 200 / 200 Output: Void Amount 1050 / 1050 350 / 350 Emesis 200 / 200 Other: # Voids 1 1 Exam: Constitutional; Afebrile, cooperative, alert, not in distress. morbidly obese Eyes- No icterus, , No periorbital swelling Ears- Ext ear normal, hearing normal to conversation. Neck- Midline trachea, supple Respiratory system: Air Entry equal on both sides, diminished air entry bilaterally, bilateral expiratory wheezing present. Able to speak full sentences any muscle use CVS- Rate rhythm regular, S1,S2 heard, no gallop, no rub. Abdomen- Soft nontender abdomen,large pannus difficult to palpate [employer]- AOOx3, moving all extremities, no gross focal deficit noted. Medical - PN: Obj Da - Labs CBC & Chem 7: 10/13/17 04:36 10/13/17 04:36 Labs: Abnormal Lab Results 10/13/17 10/13/17 10/12/17 04:36 04:36 03:50 Hgb RDW Gran % Lymph % (Auto) Lymph # (Auto) 1.4 L Sodium 131 L Potassium 5.2 H Chloride 90 L 92 L Carbon Dioxide 32 H BUN 25 H Glucose Calcium 8.2 L 8.2 L Phosphorus 4.6 H GGT 49 H AST 56 H ALT 72 H Lactate Dehydrogenase 378 H NT-Pro-B Natriuret Pep 295.3 H Triglycerides 282 H 10/11/17 10/11/17 03:30 03:30 Hgb 15.3 H RDW 14.8 H Gran % 86.4 H Lymph % (Auto) 5.7 L Lymph # (Auto) 0.5 L Sodium 131 L Potassium 5.9 H* Chloride 94 L Carbon Dioxide BUN Glucose 137 H Calcium Phosphorus 4.8 H GGT AST ALT Lactate Dehydrogenase NT-Pro-B Natriuret Pep Triglycerides Meds: Medications Hydrocodone Bitart/Acetaminophen ([place] 10/325mg) 2 tab PO TIDP PRN PRN Reason: PAIN LEVEL 3-6 Last Admin: 10/13/17 11:10 Dose: 2 tab Albuterol/Ipratropium (Duoneb) 3 ml NEB [id number] [facility] Last Admin: 10/13/17 07:30 Dose: 3 ml Alprazolam (Xanax) 0.5 mg PO TIDP PRN PRN Reason: Anxiety Last Admin: 10/13/17 09:05 Dose: 0.5 mg Amlodipine Besylate (Norvasc) 10 mg PO DAILY [facility] Last Admin: 10/13/17 09:05 Dose: 10 mg Amlodipine Besylate (Norvasc) 5 mg PO QDAY [facility] Atenolol (Tenormin) 50 mg PO DAILY [facility] Last Admin: 10/13/17 09:05 Dose: 50 mg Clopidogrel Bisulfate (Plavix) 75 mg PO QDAY [facility] Last Admin: 10/13/17 09:05 Dose: 75 mg Enoxaparin Sodium (Lovenox) 40 mg SQ DAILY [facility] Last Admin: 10/13/17 09:06 Dose: 40 mg Estrogens Conjugated (Premarin) 1.25 mg PO QDAY [facility] Famotidine (Pepcid) 40 mg IV HS [facility] Last Admin: 10/12/17 21:12 Dose: Not Given Furosemide (Lasix) 40 mg PO BID [facility] Last Admin: 10/13/17 09:05 Dose: 40 mg Gabapentin (Neurontin) 300 mg PO TID [facility] Last Admin: 10/13/17 09:05 Dose: 300 mg Guaifenesin/Codeine Phosphate (Robitussin Ac) 10 ml PO Q4HP PRN PRN Reason: Cough Last Admin: 10/13/17 02:48 Dose: 10 ml Acetaminophen (Ofirmev) 1,000 mg in 100 mls @ 200 mls/hr IV Q6HP PRN PRN Reason: PAIN/FEVER > 101 Last Infusion: 10/13/17 06:34 Dose: Infused Ketorolac Tromethamine (Toradol) 15 mg IV Q6 PRN PRN Reason: Pain Stop: 10/14/17 18:01 Last Admin: 10/13/17 07:07 Dose: 15 mg Levothyroxine Sodium (Synthroid) 75 mcg PO [facility] Last Admin: 10/13/17 07:08 Dose: 75 mcg Magnesium Hydroxide (Milk Of Magnesia) 30 ml PO DAILYP PRN PRN Reason: Constipation Ondansetron HCl (Zofran Odt) 4 mg SL Q6HP PRN PRN Reason: Nausea And Vomiting Last Admin: 10/12/17 18:38 Dose: 4 mg Ondansetron HCl (Zofran) 4 mg IV Q4HP PRN PRN Reason: Nausea And Vomiting Last Admin: 10/13/17 06:01 Dose: 4 mg Oxymetazoline HCl (Afrin) 1 spray ALFONSO BID [facility] Stop: 10/17/17 09:01 Last Admin: 10/13/17 09:06 Dose: 1 spray Pantoprazole Sodium (Protonix) 40 mg PO [facility] Last Admin: 10/13/17 07:08 Dose: 40 mg Prednisone (Prednisone) 40 mg PO [facility] Last Admin: 10/13/17 09:05 Dose: 40 mg Fluticasone/Salmeterol (Advair 500-50 Diskus) 1 puff INH BID [facility] Last Admin: 10/13/17 09:06 Dose: Not Given Simvastatin (Zocor) 20 mg PO QPM [facility] Sodium Chloride (Saline Flush) 10 ml IV Q8 [facility] Last Admin: 10/13/17 06:02 Dose: 10 ml Spironolactone (Aldactone) 25 mg PO QDAY [facility] Trimethoprim/Sulfamethoxazole (Bactrim Ds) 1 tab PO BID [facility] Medical - PN: A/P - Time Spent With Patient Total time spent is greater than 50% in coordination of care (as documented) at patient's floor/unit and/or counseling patient: - Narrative A/P Narrative: + Exacerbation of asthma most likely related to URI/pneumonia. Finished course of Levofloxacin as outpt. CXR: resolved pneumonia possibly persistent asthma due to smoking and exposure to animal dander Continue neb treatment, prednisone, BIPAP as needed CT scan reviewed possible inflammatino, infection, vs fibrosis viral vs pcp pna , PE is neg, if pt does not improve in oxygen needs despite improvement in asthma, consider pulmonary consult for bronch. pro-BNP: wnl + Acute bronchitis/pneumonia most likely viral CXR showed resolving pneumonia Azithromycin continue consider repeat CT as outpatient if pt improves, if still needs high levels of oxygen, consider pulmonary consult Acute Sinusitis bactrim started. see if this helps. as mrsa is not covered with previous regimes. + HTN Continue home meds + Morbid Obesity states that repeat sleep study didn't show THANH. + Chronic back pain Continue home meds, avoid IV pain meds + Hyperkalemia kayexelate given x 13/3 FU lab DVT prophylaxis: Lovenox Code status: Full Medical - PN: Qual - VTE Deep Vein Thrombosis/Pulmonary Embolism Present on Admission: No
[2017-10-13] MEDS: SULFAMETHOXAZOLE/TRIMETHOPRIM 1 TABLET PO SCH ×2 (11:51→21:51)
[2017-10-13] MEDS: SIMVASTATIN 20 MG TABLET PO SCH (21:51)
[2017-10-13] MEDS: FAMOTIDINE/PF 20 MG/2 ML VIAL IV SCH (21:53)
[2017-10-14] MEDS: HYDROcodone/APAP 10/325MG TABLET PO PRN ×4 (04:04→19:32)
[2017-10-14] MEDS: guaiFENesin/CODEINE 10 ML UDC PO PRN ×3 (04:04→22:40)
[2017-10-14] MEDS: KETOROLAC 15 MG/ML VIAL IV PRN ×2 (06:12→13:10)
[2017-10-14] MEDS: 0.9 % SODIUM CHLORIDE 10 ML SYRINGE IV SCH ×3 (06:13→20:56)
[2017-10-14 07:07] LABS: Basophils # (Auto) 0 K/mcL (0.0-0.3); Basophils % (Auto) 0.3 % (0.0-2.0); Eosinophils # (Auto) 0.1 K/mcL (0.0-0.7); Eosinophils % (Auto) 1.1 % (0.0-7.0); Granulocytes % (Auto) 61.6 % (38.0-78.0); Lymphocytes # (Auto) 2.4 K/mcL (1.5-4.8); Lymphocytes % (Auto) 26.4 % (15.5-49.0); Mean Cell Volume 92.8 fL (80.0-100.0); Mean Corpuscular HGB Conc 33.2 g/dL (31.0-36.0); Mean Corpuscular Hemoglobin 30.8 pg (26.0-34.0); Monocytes % (Auto) 10.6 % (1.0-12.0); Platelet Count 223 K/mcL (140-440); RBC 4.76 M/mcL (4.00-5.20); Red Cell Distribution Width 13.6 % (11.5-14.5)
[2017-10-14] MEDS: IPRATROPIUM/ALBUTEROL 3 ML AMPUL.NEB NEB SCH ×5 (07:22→22:52)
[2017-10-14] MEDS: LEVOTHYROXINE 75 MCG TABLET PO SCH (07:38)
[2017-10-14] MEDS: PANTOPRAZOLE 40 MG TABLET PO SCH (07:38)
[2017-10-14 08:09] LABS: Complement C3 50.7 mg/dl (90-180)
[2017-10-14 08:13] LABS: Erythrocyte Sedimentation Rate 17 mm/hr (0-20)
[2017-10-14 08:38] LABS: ALT/SGPT 61 U/l (0-40); Albumin 3.7 gm/dL (3.2-5.2); Albumin/Globulin Ratio 1.5 (1.0-2.3); Alkaline Phosphatase 49 U/L (39-117); Bilirubin,Direct < 0.2 mg/dL (0.0-0.3); Blood Urea Nitrogen 12 mg/dl (6-20); C-Reactive Protein 1.3 mg/dl (0.0-0.8); Gamma Glutamyl Transpeptidase 42 U/L (5-36)
[2017-10-14] MEDS ORDERED: amLODIPine 5 MG TABLET PO SCH (09:00)
[2017-10-14] MEDS: ALPRAZolam 0.5 MG TABLET PO PRN ×2 (09:14→15:31)
[2017-10-14] MEDS: SULFAMETHOXAZOLE/TRIMETHOPRIM 1 TABLET PO SCH ×2 (09:14→20:54)
[2017-10-14] MEDS: FUROSEMIDE 40 MG TABLET PO SCH ×2 (09:14→20:54)
[2017-10-14] MEDS: predniSONE 20 MG TABLET PO SCH (09:15)
[2017-10-14] MEDS: GABAPENTIN 300 MG CAPSULE PO SCH ×3 (09:15→20:56)
[2017-10-14] MEDS: SPIRONOLACTONE 25 MG TABLET PO SCH (09:15)
[2017-10-14] MEDS: ENOXAPARIN 40 MG/0.4 ML SYRINGE SQ SCH (09:16)
[2017-10-14] MEDS: ATENOLOL 50 MG TABLET PO SCH (09:17)
[2017-10-14] MEDS: CLOPIDOGREL 75 MG TABLET PO SCH (09:17)
[2017-10-14] MEDS: amLODIPine 10 MG TABLET PO SCH (09:17)
[2017-10-14] MEDS: ESTROGENS, CONJUGATED 0.625 MG TABLET PO SCH (09:17)
[2017-10-14] MEDS: OXYMETAZOLINE 1 SPRAY BOTTLE NAS SCH ×2 (09:18→20:55)
[2017-10-14] MEDS: FLUTICASONE/SALMETEROL 500/50 INHALER #14 INH SCH ×2 (09:19→20:55)
[2017-10-14] MEDS ORDERED: BENZOCAINE/MENTHOL 1 LOZENGE PO PRN (10:37)
[2017-10-14] MEDS ORDERED: BENZOCAINE/MENTHOL 1 LOZENGE PO ONE (10:40)
--- NOTE | 2017-10-14 13:47 | Internal Med Progress Note ---
Medical - PN: Subj Patient information: Note initiated : 10/14/17 at 1:35 pm Service Date, if different from initiated Date: [] Patient: Esperanza Irwin 56 y/o F admitted on 10/11/17 for SOB, Sepsis Workup/Exacerbation of Asthma. Chief Complaint: [] Interval history: Admitted 10/11 with following problems: + Exacerbation of asthma most likely related to URI/pneumonia possibly persistent asthma due to smoking and exposure to animal dander + Acute bronchitis/pneumonia most likely viral CXR showed resolving pneumonia + HTN + Morbid Obesity states that repeat sleepstudy didn't show THANH. + Chronic back pain Overnight developed worsening SOB a/w high oxygen requirement to 15 L. Patient transferred to tele unit for closer observation, and BiPAP support October 11: Had stable night on BiPAP, got few hours sleep. This am, breathing better. Still requiring 8L oxygen via HFNC Minimal cough. Afebrile. October 12: Still on 8L O2. Feeling slightly better. C/O CORONADO due to coughing Didn't want use the BIPAP last night. Hemodynamics stable Will transfer to med floor October 13 patient seen examined, no acute overnight events, still on oxygen bottle of xanax found with the patient , pt denies using these meds at hoem, but it seems that there were periods when she was difficult to arouse will not use IV narcotic pain meds and try to verify dosing of oral narcotis too ct chest done neg for pe, does show ? fibrosis, inflammation, infection . CT Sinus done shows sinusitis treated with antibiotics levoflox and zithromax. Procalcitonin is neg Will just use bactrim for sinusitis for now given she is complaining of symptoms , Will likely need repeat CT chest later to see if this is resolved She is still wheezing and needing high levels of oxygen. continue steroids and duonebs. october 14 patient seen examined she complains about a frontal headache, however is able to rest well. atient feels that her breathing is better. She is grateful for the care she has received so far. CT scan findings reviewed with her, not entirely sure if the findings of the CAT scan represent a pneumonia inflammation micro-aspirations. Patient has a low C3 and a low C4 however normal ESR and CRP. Given sinusitis as well as possible changes in the lungs get maricruz with comphrensive panel, check anca levels. pt is already on steroids, doubt if tyhere is an autoimmue process though. check c3 and c4 again. Pertinent ROS: Present headache, no dizziness Denies chest pain, palpitations improving cough or shortness of breath Denies abdominal pain, nausea or vomiting. - Constitutional Vitals: Vital Signs Temp Pulse Resp BP Pulse Ox 98.6 F 80 20 129/72 90 10/14/17 11:40 10/14/17 11:40 10/14/17 11:40 10/14/17 11:40 10/14/17 13:24 Period Temp Pulse Resp BP Sys/Cortés Pulse Ox Last 24 Hr 98.3 F-99.7 F 65-94 16-24 125-140/60-76 86-93 Intake and Output 10/13/17 10/14/17 10/14/17 21:59 05:59 13:59 Intake Total 200 / 200 900 / 900 240 / 240 Output Total 2000 / 2000 175 / 175 1000 / 1000 Balance -1800 / -1800 725 / 725 -760 / -760 Weight 303 lb 8 oz Intake & Output: Intake & Output 10/13/17 10/14/17 10/14/17 21:59 05:59 13:59 Intake Total 200 / 200 900 / 900 240 / 240 Output Total 2000 / 2000 175 / 175 1000 / 1000 Balance -1800 / -1800 725 / 725 -760 / -760 Weight 303 lb 8 oz Intake: Oral 200 / 200 900 / 900 240 / 240 Output: Void Amount 2000 / 2000 175 / 175 1000 / 1000 Other: Meal Lunch Percent of Meal Consumed 75% Feeding Ability Independent # Voids 1 Exam: Constitutional; Afebrile, cooperative, alert, not in distress. Eyes- No icterus, , No periorbital swelling Ears- Ext ear normal, hearing normal to conversation. Neck- Midline trachea, supple Respiratory system: Air Entry equal on both sides,hannah exp wheezing, air entry better today than yesterday. still quite poor air entry. CVS- Rate rhythm regular, S1,S2 heard, no gallop, no rub. 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 Medical - PN: Obj Da - Labs CBC & Chem 7: 10/14/17 06:30 10/14/17 06:30 Labs: Abnormal Lab Results 10/14/17 10/14/17 10/14/17 06:30 06:30 06:30 Lymph # (Auto) [place] # (Auto) 1.0 H Sodium Potassium Chloride 89 L Carbon Dioxide 33 H BUN Calcium 8.4 L Phosphorus 2.4 L GGT 42 H AST ALT 61 H Lactate Dehydrogenase 303 H C-Reactive Protein 1.3 H NT-Pro-B Natriuret Pep Triglycerides 196 H Complement C3 50.7 L Complement C4 13.2 L 10/13/17 10/13/17 10/12/17 04:36 04:36 03:50 Lymph # (Auto) 1.4 L [place] # (Auto) Sodium 131 L Potassium 5.2 H Chloride 90 L 92 L Carbon Dioxide 32 H BUN 25 H Calcium 8.2 L 8.2 L Phosphorus 4.6 H GGT 49 H AST 56 H ALT 72 H Lactate Dehydrogenase 378 H C-Reactive Protein NT-Pro-B Natriuret Pep 295.3 H Triglycerides 282 H Complement C3 Complement C4 Meds: Medications Hydrocodone Bitart/Acetaminophen ([place] 10/325mg) 2 tab PO TIDP PRN PRN Reason: PAIN LEVEL 3-6 Last Admin: 10/14/17 09:18 Dose: 2 tab Albuterol/Ipratropium (Duoneb) 3 ml NEB [id number] [facility] Last Admin: 10/14/17 10:54 Dose: 3 ml Alprazolam (Xanax) 0.5 mg PO TIDP PRN PRN Reason: Anxiety Last Admin: 10/14/17 09:14 Dose: 0.5 mg Amlodipine Besylate (Norvasc) 10 mg PO DAILY [facility] Last Admin: 10/14/17 09:17 Dose: 10 mg Atenolol (Tenormin) 50 mg PO DAILY [facility] Last Admin: 10/14/17 09:17 Dose: 50 mg Clopidogrel Bisulfate (Plavix) 75 mg PO QDAY [facility] Last Admin: 10/14/17 09:17 Dose: 75 mg Enoxaparin Sodium (Lovenox) 40 mg SQ DAILY [facility] Last Admin: 10/14/17 09:16 Dose: 40 mg Estrogens Conjugated (Premarin) 1.25 mg PO DAILY [facility] Last Admin: 10/14/17 09:17 Dose: 1.25 mg Famotidine (Pepcid) [address] [facility] Last Admin: 10/13/17 21:53 Dose: 40 mg Furosemide (Lasix) 40 mg PO BID [facility] Last Admin: 10/14/17 09:14 Dose: 40 mg Gabapentin (Neurontin) 300 mg PO TID [facility] Last Admin: 10/14/17 09:15 Dose: 300 mg Guaifenesin/Codeine Phosphate (Robitussin Ac) 10 ml PO Q4HP PRN PRN Reason: Cough Last Admin: 10/14/17 10:43 Dose: 10 ml Acetaminophen (Ofirmev) 1,000 mg in 100 mls @ 200 mls/hr IV Q6HP PRN PRN Reason: PAIN/FEVER > 101 Last Infusion: 10/13/17 06:34 Dose: Infused Ketorolac Tromethamine (Toradol) 15 mg IV Q6 PRN PRN Reason: Pain Stop: 10/14/17 18:01 Last Admin: 10/14/17 13:10 Dose: 15 mg Levothyroxine Sodium (Synthroid) 75 mcg PO [facility] Last Admin: 10/14/17 07:38 Dose: 75 mcg Magnesium Hydroxide (Milk Of Magnesia) 30 ml PO DAILYP PRN PRN Reason: Constipation Ondansetron HCl (Zofran Odt) 4 mg SL Q6HP PRN PRN Reason: Nausea And Vomiting Last Admin: 10/12/17 18:38 Dose: 4 mg Ondansetron HCl (Zofran) 4 mg IV Q4HP PRN PRN Reason: Nausea And Vomiting Last Admin: 10/13/17 19:43 Dose: 4 mg Oxymetazoline HCl (Afrin) 1 spray ALFONSO BID [facility] Stop: 10/17/17 09:01 Last Admin: 10/14/17 09:18 Dose: 1 spray Pantoprazole Sodium (Protonix) 40 mg PO [facility] Last Admin: 10/14/17 07:38 Dose: 40 mg Prednisone (Prednisone) 40 mg PO [facility] Last Admin: 10/14/17 09:15 Dose: 40 mg Fluticasone/Salmeterol (Advair 500-50 Diskus) 1 puff INH BID [facility] Last Admin: 10/14/17 09:19 Dose: Not Given Simvastatin (Zocor) 20 mg PO QPM [facility] Last Admin: 10/13/17 21:51 Dose: 20 mg Sodium Chloride (Saline Flush) 10 ml IV Q8 [facility] Last Admin: 10/14/17 13:09 Dose: 10 ml Spironolactone (Aldactone) 25 mg PO QDAY [facility] Last Admin: 10/14/17 09:15 Dose: 25 mg Throat Lozenges (Cepacol) 1 lozenge PO PRN PRN PRN Reason: Sore Throat Trimethoprim/Sulfamethoxazole (Bactrim Ds) 1 tab PO BID [facility] Last Admin: 10/14/17 09:14 Dose: 1 tab Medical - PN: A/P - Time Spent With Patient Total time spent is greater than 50% in coordination of care (as documented) at patient's floor/unit and/or counseling patient: - Narrative A/P Narrative: + Exacerbation of asthma most likely related to URI/pneumonia. Finished course of Levofloxacin as outpt. CXR: resolved pneumonia possibly persistent asthma due to smoking and exposure to animal dander Continue neb treatment, prednisone, BIPAP as needed CT scan reviewed possible inflammatino, infection, vs fibrosis viral vs pcp pna , PE is neg, Probaly will repeat CT as outpatient, pulm consult if patient does not improve much Acute hypoxic resp failiure on oxygen via nc, 5L via Nasal mask now. low complement levels check maricruz, anca repeat levels pro-BNP: wnl + Acute bronchitis/pneumonia most likely viral CXR showed resolving pneumonia Azithromycin continue consider repeat CT as outpatient if pt improves, if still needs high levels of oxygen, consider pulmonary consult Acute Sinusitis bactrim started. see if this helps. as mrsa is not covered with previous regimes. + HTN Continue home meds + Morbid Obesity states that repeat sleep study didn't show THANH. + Chronic back pain Continue home meds, avoid IV pain meds + Hyperkalemia kayexelate given x /3 FU lab DVT prophylaxis: Lovenox Code status: Full Medical - PN: Qual - VTE Deep Vein Thrombosis/Pulmonary Embolism Present on Admission: No
[2017-10-14] MEDS: SIMVASTATIN 20 MG TABLET PO SCH (20:56)
[2017-10-14] MEDS: FAMOTIDINE/PF 20 MG/2 ML VIAL IV SCH (20:56)
[2017-10-14] MEDS: ONDANSETRON 4 MG/2 ML VIAL IV PRN (21:04)
[2017-10-15] MEDS: HYDROcodone/APAP 10/325MG TABLET PO PRN ×3 (01:18→18:05)
[2017-10-15] MEDS: guaiFENesin/CODEINE 10 ML UDC PO PRN ×3 (02:50→18:50)
[2017-10-15 06:30] LABS: Basophils # (Auto) 0 K/mcL (0.0-0.3); Basophils % (Auto) 0.2 % (0.0-2.0); Eosinophils # (Auto) 0 K/mcL (0.0-0.7); Eosinophils % (Auto) 0.5 % (0.0-7.0); Granulocytes % (Auto) 55.2 % (38.0-78.0); Lymphocytes # (Auto) 2.5 K/mcL (1.5-4.8); Lymphocytes % (Auto) 34.7 % (15.5-49.0); Mean Cell Volume 93.3 fL (80.0-100.0); Mean Corpuscular HGB Conc 33.2 g/dL (31.0-36.0); Monocytes # (Auto) 0.7 K/mcL (0.1-0.9); Monocytes % (Auto) 9.4 % (1.0-12.0); Platelet Count 219 K/mcL (140-440); RBC 4.74 M/mcL (4.00-5.20); Red Cell Distribution Width 13.9 % (11.5-14.5)
[2017-10-15] MEDS: IPRATROPIUM/ALBUTEROL 3 ML AMPUL.NEB NEB SCH ×5 (07:04→23:30)
[2017-10-15] MEDS: LEVOTHYROXINE 75 MCG TABLET PO SCH (07:14)
[2017-10-15] MEDS: ALPRAZolam 0.5 MG TABLET PO PRN (07:14)
[2017-10-15] MEDS: PANTOPRAZOLE 40 MG TABLET PO SCH (07:14)
[2017-10-15 07:20] LABS: ALT/SGPT 50 U/l (0-40); Albumin 3.8 gm/dL (3.2-5.2); Albumin/Globulin Ratio 1.5 (1.0-2.3); Alkaline Phosphatase 46 U/L (39-117); Bilirubin,Direct < 0.2 mg/dL (0.0-0.3); Blood Urea Nitrogen 10 mg/dl (6-20); Gamma Glutamyl Transpeptidase 39 U/L (5-36); Uric Acid 3.7 mg/dL (2.5-8.0)
[2017-10-15] MEDS: predniSONE 20 MG TABLET PO SCH (07:22)
[2017-10-15] MEDS: OXYMETAZOLINE 1 SPRAY BOTTLE NAS SCH ×3 (09:15→20:43)
[2017-10-15] MEDS: 0.9 % SODIUM CHLORIDE 10 ML SYRINGE IV SCH ×3 (10:04→20:49)
[2017-10-15] MEDS: ACETAMINOPHEN 1,000 MG/100 ML BOTTLE IV PRN ×2 (10:04→17:12)
[2017-10-15] MEDS: ENOXAPARIN 40 MG/0.4 ML SYRINGE SQ SCH (10:09)
[2017-10-15] MEDS: GABAPENTIN 300 MG CAPSULE PO SCH ×3 (10:09→20:44)
[2017-10-15] MEDS: FUROSEMIDE 40 MG TABLET PO SCH ×2 (10:10→20:44)
[2017-10-15] MEDS: SULFAMETHOXAZOLE/TRIMETHOPRIM 1 TABLET PO SCH ×2 (10:10→20:44)
[2017-10-15] MEDS: ATENOLOL 50 MG TABLET PO SCH (10:10)
[2017-10-15] MEDS: amLODIPine 10 MG TABLET PO SCH (10:10)
[2017-10-15] MEDS: CLOPIDOGREL 75 MG TABLET PO SCH (10:10)
[2017-10-15] MEDS: ESTROGENS, CONJUGATED 0.625 MG TABLET PO SCH (10:10)
[2017-10-15] MEDS: FLUTICASONE/SALMETEROL 500/50 INHALER #14 INH SCH ×2 (10:11→20:49)
[2017-10-15] MEDS: SPIRONOLACTONE 25 MG TABLET PO SCH (10:11)
[2017-10-15] MEDS ORDERED: MAGNESIUM SULFATE 2 GM/50 ML BAG IV ONE (13:02)
--- NOTE | 2017-10-15 14:34 | Internal Med Progress Note ---
Medical - PN: Subj Patient information: Note initiated : 10/15/17 at 2:22 pm Service Date, if different from initiated Date: [] Patient: Esperanza Irwin 56 y/o F admitted on 10/11/17 for SOB, Sepsis Workup/Exacerbation of Asthma. Chief Complaint: [] Interval history: Admitted 10/11 with following problems: + Exacerbation of asthma most likely related to URI/pneumonia possibly persistent asthma due to smoking and exposure to animal dander + Acute bronchitis/pneumonia most likely viral CXR showed resolving pneumonia + HTN + Morbid Obesity states that repeat sleepstudy didn't show THANH. + Chronic back pain Overnight developed worsening SOB a/w high oxygen requirement to 15 L. Patient transferred to tele unit for closer observation, and BiPAP support October 11: Had stable night on BiPAP, got few hours sleep. This am, breathing better. Still requiring 8L oxygen via HFNC Minimal cough. Afebrile. October 12: Still on 8L O2. Feeling slightly better. C/O CORONADO due to coughing Didn't want use the BIPAP last night. Hemodynamics stable Will transfer to med floor October 13 patient seen examined, no acute overnight events, still on oxygen bottle of xanax found with the patient , pt denies using these meds at hoem, but it seems that there were periods when she was difficult to arouse will not use IV narcotic pain meds and try to verify dosing of oral narcotis too ct chest done neg for pe, does show ? fibrosis, inflammation, infection . CT Sinus done shows sinusitis treated with antibiotics levoflox and zithromax. Procalcitonin is neg Will just use bactrim for sinusitis for now given she is complaining of symptoms , Will likely need repeat CT chest later to see if this is resolved She is still wheezing and needing high levels of oxygen. continue steroids and duonebs. october 14 patient seen examined she complains about a frontal headache, however is able to rest well. atient feels that her breathing is better. She is grateful for the care she has received so far. CT scan findings reviewed with her, not entirely sure if the findings of the CAT scan represent a pneumonia inflammation micro-aspirations. Patient has a low C3 and a low C4 however normal ESR and CRP. Given sinusitis as well as possible changes in the lungs get carmella with comphrensive panel, check anca levels. pt is already on steroids, doubt if tyhere is an autoimmue process though. check c3 and c4 again. October 15 patient seen examined, after being in the dark in the room, with her daughter and a granddaughter. The patient notes that she still has a headache. In the light bothers her. She has no neck stiffness. No history of any migraine disease. CT scan of the sinuses showed sinusitis. She still notes shortness of breath and cough however this is improving slowly. The patient's lab work is positive for carmella 1:160 titer positive, nucleolar pattern, low C3 and low C4 again present today. I reviewed the case with rheumatology who did not feel that this is related to lupus. Advised to send a comprehensive panel, vasculitis panel and rheumatoid factor for this patient which was sent Patient status on 5 L of oxygen, still has poor air entry and bilateral expiratory wheezes. He remains on steroids and DuoNeb's. Continue on Bactrim Pertinent ROS: present headache, dizziness Denies chest pain, palpitations improving shortness of breath and cough Denies abdominal pain, nausea or vomiting. - Constitutional Vitals: Vital Signs Temp Pulse Resp BP Pulse Ox 98.1 F 68 18 142/80 92 10/15/17 04:00 10/15/17 07:35 10/15/17 07:35 10/15/17 07:35 10/15/17 07:35 Period Temp Pulse Resp BP Sys/Cortés Pulse Ox Last 24 Hr 98.1 F-98.9 F 64-79 16-20 130-148/60-82 90-95 Intake and Output 10/15/17 10/15/17 10/15/17 05:59 13:59 21:59 Intake Total 1560 / 1560 1540 / 1540 Output Total 1050 / 1050 550 / 550 Balance 510 / 510 990 / 990 Intake & Output: Intake & Output 10/15/17 10/15/17 10/15/17 05:59 13:59 21:59 Intake Total 1560 / 1560 1540 / 1540 Output Total 1050 / 1050 550 / 550 Balance 510 / 510 990 / 990 Intake: IV 100 / 100 Oral 1560 / 1560 1440 / 1440 Output: Void Amount 1050 / 1050 550 / 550 Other: Meal Breakfast Percent of Meal Consumed 100% Feeding Ability Independent Exam: Constitutional; Afebrile, cooperative, alert, not in distress.morbidly obese Eyes- No icterus, , No periorbital swelling Ears- Ext ear normal, hearing normal to conversation. Neck- Midline trachea, supple, no neck stiffness Respiratory system: Air Entry equal on both sides, were at entry, bilateral expiratory wheezes still present, apparently somewhat better CVS- Rate rhythm regular, S1,S2 heard, no gallop, no rub. 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 Medical - PN: Obj Da - Labs CBC & Chem 7: 10/15/17 05:05 10/15/17 05:05 Labs: Abnormal Lab Results 10/15/17 10/15/17 10/14/17 05:05 05:05 06:30 Lymph # (Auto) [place] # (Auto) Sodium Chloride 90 L Carbon Dioxide 35 H Calcium Phosphorus GGT 39 H AST ALT 50 H Lactate Dehydrogenase 330 H C-Reactive Protein Triglycerides 158 H Rheumatoid Factor 22 H CARMELLA Screen Pos 1:80 or greater A Complement C3 53.0 L 50.7 L Complement C4 12.9 L 13.2 L 10/14/17 10/14/17 10/13/17 06:30 06:30 04:36 Lymph # (Auto) [place] # (Auto) 1.0 H Sodium 131 L Chloride 89 L 90 L Carbon Dioxide 33 H Calcium 8.4 L 8.2 L Phosphorus 2.4 L GGT 42 H 49 H AST 56 H ALT 61 H 72 H Lactate Dehydrogenase 303 H 378 H C-Reactive Protein 1.3 H Triglycerides 196 H 282 H Rheumatoid Factor CARMELLA Screen Complement C3 Complement C4 10/13/17 04:36 Lymph # (Auto) 1.4 L [place] # (Auto) Sodium Chloride Carbon Dioxide Calcium Phosphorus GGT AST ALT Lactate Dehydrogenase C-Reactive Protein Triglycerides Rheumatoid Factor CARMELLA Screen Complement C3 Complement C4 Meds: Medications Hydrocodone Bitart/Acetaminophen ([place] 10/325mg) 2 tab PO TIDP PRN PRN Reason: PAIN LEVEL 3-6 Last Admin: 10/15/17 11:33 Dose: 1 tab Albuterol/Ipratropium (Duoneb) 3 ml NEB [id number] Last Admin: 10/15/17 11:24 Dose: 3 ml Alprazolam (Xanax) 0.5 mg PO TIDP PRN PRN Reason: Anxiety Last Admin: 10/15/17 07:14 Dose: 0.5 mg Amlodipine Besylate (Norvasc) 10 mg PO DAILY [facility] Last Admin: 10/15/17 10:10 Dose: 10 mg Atenolol (Tenormin) 50 mg PO DAILY [facility] Last Admin: 10/15/17 10:10 Dose: 50 mg Clopidogrel Bisulfate (Plavix) 75 mg PO QDAY [facility] Last Admin: 10/15/17 10:10 Dose: 75 mg Enoxaparin Sodium (Lovenox) 40 mg SQ DAILY [facility] Last Admin: 10/15/17 10:09 Dose: 40 mg Estrogens Conjugated (Premarin) 1.25 mg PO DAILY [facility] Last Admin: 10/15/17 10:10 Dose: 1.25 mg Famotidine (Pepcid) 40 mg IV HS [facility] Last Admin: 10/14/17 20:56 Dose: 40 mg Furosemide (Lasix) 40 mg PO BID [facility] Last Admin: 10/15/17 10:10 Dose: 40 mg Gabapentin (Neurontin) 300 mg PO TID [facility] Last Admin: 10/15/17 10:09 Dose: 300 mg Guaifenesin/Codeine Phosphate (Robitussin Ac) 10 ml PO Q4HP PRN PRN Reason: Cough Last Admin: 10/15/17 07:22 Dose: 10 ml Acetaminophen (Ofirmev) 1,000 mg in 100 mls @ 200 mls/hr IV Q6HP PRN PRN Reason: PAIN/FEVER > 101 Last Infusion: 10/15/17 10:35 Dose: Infused Levothyroxine Sodium (Synthroid) 75 mcg PO QAMAC [facility] Last Admin: 10/15/17 07:14 Dose: 75 mcg Magnesium Hydroxide (Milk Of Magnesia) 30 ml PO DAILYP PRN PRN Reason: Constipation Ondansetron HCl (Zofran Odt) 4 mg SL Q6HP PRN PRN Reason: Nausea And Vomiting Last Admin: 10/12/17 18:38 Dose: 4 mg Ondansetron HCl (Zofran) 4 mg IV Q4HP PRN PRN Reason: Nausea And Vomiting Last Admin: 10/14/17 21:04 Dose: 4 mg Oxymetazoline HCl (Afrin) 1 spray ALFONSO BID [facility] Stop: 10/17/17 09:01 Last Admin: 10/15/17 09:15 Dose: 1 spray Pantoprazole Sodium (Protonix) 40 mg PO QAMAC [facility] Last Admin: 10/15/17 07:14 Dose: 40 mg Prednisone (Prednisone) 40 mg PO QAMCC [facility] Last Admin: 10/15/17 07:22 Dose: 40 mg Fluticasone/Salmeterol (Advair 500-50 Diskus) 1 puff INH BID [facility] Last Admin: 10/15/17 10:11 Dose: Not Given Simvastatin (Zocor) 20 mg PO QPM [facility] Last Admin: 10/14/17 20:56 Dose: 20 mg Sodium Chloride (Saline Flush) 10 ml IV Q8 [facility] Last Admin: 10/15/17 10:04 Dose: 10 ml Spironolactone (Aldactone) 25 mg PO QDAY [facility] Last Admin: 10/15/17 10:11 Dose: 25 mg Throat Lozenges (Cepacol) 1 lozenge PO PRN PRN PRN Reason: Sore Throat Trimethoprim/Sulfamethoxazole (Bactrim Ds) 1 tab PO BID [facility] Last Admin: 10/15/17 10:10 Dose: 1 tab Medical - PN: A/P - Time Spent With Patient Total time spent is greater than 50% in coordination of care (as documented) at patient's floor/unit and/or counseling patient: - Narrative A/P Narrative: + acute Exacerbation of asthma most likely related to URI/pneumonia. Finished course of Levofloxacin as outpt. CXR: resolved pneumonia possibly persistent asthma due to smoking and exposure to animal dander Continue neb treatment, prednisone, she will likely have a protracted clinical course CT scan reviewed possible inflammation, infection, vs fibrosis viral vs pcp pna , PE is neg, Probablyy will repeat CT as outpatient, pulm consult if patient does not improve much Acute hypoxic resp failiure on oxygen via nc, 5L via Nasal mask now.still on 5 L of oxygen today, try to wean off as tolerated low complement levels Carmella levels and vascular to spinal pending, rheumatoid factor is pending, C2 C4 is low again today. pro-BNP: wnl + Acute bronchitis/pneumonia most likely viral CXR showed resolving pneumonia CT scan shows infiltrative pattern, see above Acute Sinusitis bactrim started. see if this helps. as mrsa is not covered with previous regimes. + HTN Continue home meds + Morbid Obesity states that repeat sleep study didn't show THANH. + Chronic back pain Continue home meds, avoid IV pain meds + Hyperkalemia kayexelate given x 21/10 FU lab DVT prophylaxis: Lovenox Code status: Full Medical - PN: Qual - VTE Deep Vein Thrombosis/Pulmonary Embolism Present on Admission: No
[2017-10-15] MEDS: SIMVASTATIN 20 MG TABLET PO SCH (20:44)
[2017-10-15] MEDS: FAMOTIDINE/PF 20 MG/2 ML VIAL IV SCH (20:46)
[2017-10-16] MEDS: HYDROcodone/APAP 10/325MG TABLET PO PRN ×4 (00:36→20:06)
[2017-10-16] MEDS: guaiFENesin/CODEINE 10 ML UDC PO PRN ×3 (00:36→14:34)
[2017-10-16] MEDS: 0.9 % SODIUM CHLORIDE 10 ML SYRINGE IV SCH ×3 (05:15→20:05)
[2017-10-16] MEDS: IPRATROPIUM/ALBUTEROL 3 ML AMPUL.NEB NEB SCH ×5 (07:33→23:40)
[2017-10-16 07:43] LABS: Basophils # (Auto) 0 K/mcL (0.0-0.3); Basophils % (Auto) 0.3 % (0.0-2.0); Eosinophils # (Auto) 0.1 K/mcL (0.0-0.7); Eosinophils % (Auto) 1.4 % (0.0-7.0); Lymphocytes # (Auto) 3.1 K/mcL (1.5-4.8); Lymphocytes % (Auto) 34.3 % (15.5-49.0); Mean Cell Volume 93.3 fL (80.0-100.0); Mean Corpuscular HGB Conc 33.1 g/dL (31.0-36.0); Mean Corpuscular Hemoglobin 30.9 pg (26.0-34.0); Monocytes # (Auto) 0.6 K/mcL (0.1-0.9); Platelet Count 263 K/mcL (140-440); RBC 4.69 M/mcL (4.00-5.20)
[2017-10-16 08:27] LABS: ALT/SGPT 58 U/l (0-40); Albumin 3.8 gm/dL (3.2-5.2); Albumin/Globulin Ratio 1.7 (1.0-2.3); Alkaline Phosphatase 46 U/L (39-117); Bilirubin,Direct < 0.2 mg/dL (0.0-0.3); Blood Urea Nitrogen 13 mg/dl (6-20); Gamma Glutamyl Transpeptidase 38 U/L (5-36); Uric Acid 3.3 mg/dL (2.5-8.0)
[2017-10-16] MEDS: ENOXAPARIN 40 MG/0.4 ML SYRINGE SQ SCH (08:34)
[2017-10-16] MEDS: SPIRONOLACTONE 25 MG TABLET PO SCH (08:35)
[2017-10-16] MEDS: ESTROGENS, CONJUGATED 0.625 MG TABLET PO SCH (08:35)
[2017-10-16] MEDS: GABAPENTIN 300 MG CAPSULE PO SCH ×3 (08:36→20:05)
[2017-10-16] MEDS: LEVOTHYROXINE 75 MCG TABLET PO SCH (08:36)
[2017-10-16] MEDS: CLOPIDOGREL 75 MG TABLET PO SCH (08:36)
[2017-10-16] MEDS: amLODIPine 10 MG TABLET PO SCH (08:36)
[2017-10-16] MEDS: predniSONE 20 MG TABLET PO SCH (08:36)
[2017-10-16] MEDS: SULFAMETHOXAZOLE/TRIMETHOPRIM 1 TABLET PO SCH ×2 (08:37→20:05)
[2017-10-16] MEDS: FLUTICASONE/SALMETEROL 500/50 INHALER #14 INH SCH ×2 (08:37→20:06)
[2017-10-16] MEDS: PANTOPRAZOLE 40 MG TABLET PO SCH (08:37)
[2017-10-16] MEDS: FUROSEMIDE 40 MG TABLET PO SCH ×2 (08:37→20:05)
[2017-10-16] MEDS: ATENOLOL 50 MG TABLET PO SCH (08:37)
[2017-10-16] MEDS: OXYMETAZOLINE 1 SPRAY BOTTLE NAS SCH ×2 (08:38→20:05)
[2017-10-16] MEDS: ALPRAZolam 0.5 MG TABLET PO PRN ×2 (08:56→22:55)
[2017-10-16] MEDS: NYSTATIN 500,000 UNITS/5 ML ORAL.SUSP SSW SCH ×2 (15:35→20:05)
[2017-10-16] MEDS: SIMVASTATIN 20 MG TABLET PO SCH (20:05)
--- NOTE | 2017-10-16 21:07 | Internal Med Progress Note ---
Medical - PN: Subj Patient information: Note initiated : 10/16/17 at 9:04 pm Service Date, if different from initiated Date: [] Patient: Esperanza Irwin 56 y/o F admitted on 10/11/17 for SOB, Sepsis Workup/Exacerbation of Asthma. Chief Complaint: [] Interval history: Admitted 10/11 with following problems: + Exacerbation of asthma most likely related to URI/pneumonia possibly persistent asthma due to smoking and exposure to animal dander + Acute bronchitis/pneumonia most likely viral CXR showed resolving pneumonia + HTN + Morbid Obesity states that repeat sleepstudy didn't show THANH. + Chronic back pain Overnight developed worsening SOB a/w high oxygen requirement to 15 L. Patient transferred to tele unit for closer observation, and BiPAP support October 11: Had stable night on BiPAP, got few hours sleep. This am, breathing better. Still requiring 8L oxygen via HFNC Minimal cough. Afebrile. October 12: Still on 8L O2. Feeling slightly better. C/O CORONADO due to coughing Didn't want use the BIPAP last night. Hemodynamics stable Will transfer to med floor October 13 patient seen examined, no acute overnight events, still on oxygen bottle of xanax found with the patient , pt denies using these meds at hoem, but it seems that there were periods when she was difficult to arouse will not use IV narcotic pain meds and try to verify dosing of oral narcotis too ct chest done neg for pe, does show ? fibrosis, inflammation, infection . CT Sinus done shows sinusitis treated with antibiotics levoflox and zithromax. Procalcitonin is neg Will just use bactrim for sinusitis for now given she is complaining of symptoms , Will likely need repeat CT chest later to see if this is resolved She is still wheezing and needing high levels of oxygen. continue steroids and duonebs. october 14 patient seen examined she complains about a frontal headache, however is able to rest well. atient feels that her breathing is better. She is grateful for the care she has received so far. CT scan findings reviewed with her, not entirely sure if the findings of the CAT scan represent a pneumonia inflammation micro-aspirations. Patient has a low C3 and a low C4 however normal ESR and CRP. Given sinusitis as well as possible changes in the lungs get carmella with comphrensive panel, check anca levels. pt is already on steroids, doubt if tyhere is an autoimmue process though. check c3 and c4 again. October 15 patient seen examined, after being in the dark in the room, with her daughter and a granddaughter. The patient notes that she still has a headache. In the light bothers her. She has no neck stiffness. No history of any migraine disease. CT scan of the sinuses showed sinusitis. She still notes shortness of breath and cough however this is improving slowly. The patient's lab work is positive for carmella 1:160 titer positive, nucleolar pattern, low C3 and low C4 again present today. I reviewed the case with rheumatology who did not feel that this is related to lupus. Advised to send a comprehensive panel, vasculitis panel and rheumatoid factor for this patient which was sent Patient status on 5 L of oxygen, still has poor air entry and bilateral expiratory wheezes. He remains on steroids and DuoNeb's. Continue on Bactrim october 16 [t seen examined, did not sleep well last night was tired today notes breathing is better, on 3.5l oxygen now headache improving no other complaints. Pertinent ROS: Denies headache, dizziness Denies chest pain, palpitations improving cough and shortness of breath Denies abdominal pain, nausea or vomiting. - Constitutional Vitals: Vital Signs Temp Pulse Resp BP Pulse Ox 98.7 F 64 20 112/78 93 10/16/17 20:00 10/16/17 20:00 10/16/17 20:00 10/16/17 20:00 10/16/17 20:00 Period Temp Pulse Resp BP Sys/Cortés Pulse Ox Last 24 Hr 97.5 F-99.2 F 60-92 16-20 112-128/62-78 92-94 Intake and Output 10/16/17 10/16/17 10/16/17 05:59 13:59 21:59 Intake Total 1350 / 1350 370 / 370 Output Total 1600 / 1600 1600 / 1600 Balance -250 / -250 -1230 / -1230 Intake & Output: Intake & Output 10/16/17 10/16/17 10/16/17 05:59 13:59 21:59 Intake Total 1350 / 1350 370 / 370 Output Total 1600 / 1600 1600 / 1600 Balance -250 / -250 -1230 / -1230 Intake: Oral 1350 / 1350 370 / 370 Output: Void Amount 1600 / 1600 1600 / 1600 Other: Meal Dinner Percent of Meal Consumed 100% Feeding Ability Independent Exam: Constitutional; Afebrile, cooperative, alert, not in distress. Eyes- No icterus, , No periorbital swelling Ears- Ext ear normal, hearing normal to conversation. Neck- Midline trachea, supple Respiratory system: Air Entry equal on both sides, hannah wheezing, impvoing very slowly, air entry also improved, CVS- Rate rhythm regular, S1,S2 heard, no gallop, no rub. Abdomen- Soft nontender abdomen, no organomegaly, no tenderness, no guarding or rigidity, PIECE HAND- AOOx3, moving all extremities, no gross focal deficit noted. Medical - PN: Obj Da - Labs CBC & Chem 7: 10/16/17 06:17 10/16/17 06:17 Labs: Abnormal Lab Results 10/16/17 10/15/17 10/15/17 06:17 05:05 05:05 Falls # (Auto) Chloride 89 L 90 L Carbon Dioxide 35 H 35 H Calcium 8.5 L Phosphorus GGT 38 H 39 H AST 41 H ALT 58 H 50 H Lactate Dehydrogenase 283 H 330 H C-Reactive Protein Triglycerides 158 H 158 H Rheumatoid Factor 22 H CARMELLA Screen Complement C3 53.0 L Complement C4 12.9 L 10/14/17 10/14/17 10/14/17 06:30 06:30 06:30 Falls # (Auto) 1.0 H Chloride 89 L Carbon Dioxide 33 H Calcium 8.4 L Phosphorus 2.4 L GGT 42 H AST ALT 61 H Lactate Dehydrogenase 303 H C-Reactive Protein 1.3 H Triglycerides 196 H Rheumatoid Factor CARMELLA Screen Pos 1:80 or greater A Complement C3 50.7 L Complement C4 13.2 L Meds: Medications Hydrocodone Bitart/Acetaminophen (Okay 10/325mg) 2 tab PO TIDP PRN PRN Reason: PAIN LEVEL 3-6 Last Admin: 10/16/17 20:06 Dose: 2 tab Albuterol/Ipratropium (Duoneb) 3 ml NEB [id number] LEXIE Last Admin: 10/16/17 19:49 Dose: 3 ml Alprazolam (Xanax) 0.5 mg PO TIDP PRN PRN Reason: Anxiety Last Admin: 10/16/17 08:56 Dose: 0.5 mg Amlodipine Besylate (Norvasc) 10 mg PO DAILY [facility] Last Admin: 10/16/17 08:36 Dose: 10 mg Atenolol (Tenormin) 50 mg PO DAILY [facility] Last Admin: 10/16/17 08:37 Dose: 50 mg Clopidogrel Bisulfate (Plavix) 75 mg PO QDAY [facility] Last Admin: 10/16/17 08:36 Dose: 75 mg Enoxaparin Sodium (Lovenox) 40 mg SQ DAILY [facility] Last Admin: 10/16/17 08:34 Dose: 40 mg Estrogens Conjugated (Premarin) 1.25 mg PO DAILY [facility] Last Admin: 10/16/17 08:35 Dose: 1.25 mg Furosemide (Lasix) 40 mg PO BID [facility] Last Admin: 10/16/17 20:05 Dose: 40 mg Gabapentin (Neurontin) 300 mg PO TID [facility] Last Admin: 10/16/17 20:05 Dose: 300 mg Guaifenesin/Codeine Phosphate (Robitussin Ac) 10 ml PO Q4HP PRN PRN Reason: Cough Last Admin: 10/16/17 14:34 Dose: 10 ml Acetaminophen (Ofirmev) 1,000 mg in 100 mls @ 200 mls/hr IV Q6HP PRN PRN Reason: PAIN/FEVER > 101 Last Infusion: 10/15/17 17:42 Dose: Infused Levothyroxine Sodium (Synthroid) 75 mcg PO QAMAC [facility] Last Admin: 10/16/17 08:36 Dose: 75 mcg Magnesium Hydroxide (Milk Of Magnesia) 30 ml PO DAILYP PRN PRN Reason: Constipation Nystatin (Nystatin) 500,000 units SSW TID [facility] Last Admin: 10/16/17 20:05 Dose: 500,000 units Ondansetron HCl (Zofran Odt) 4 mg SL Q6HP PRN PRN Reason: Nausea And Vomiting Last Admin: 10/12/17 18:38 Dose: 4 mg Ondansetron HCl (Zofran) 4 mg IV Q4HP PRN PRN Reason: Nausea And Vomiting Last Admin: 10/14/17 21:04 Dose: 4 mg Oxymetazoline HCl (Afrin) 1 spray ALFONSO BID [facility] Stop: 10/17/17 09:01 Last Admin: 10/16/17 20:05 Dose: 1 spray Pantoprazole Sodium (Protonix) 40 mg PO QAMAC [facility] Last Admin: 10/16/17 08:37 Dose: 40 mg Prednisone (Prednisone) 40 mg PO QAMCC [facility] Last Admin: 10/16/17 08:36 Dose: 40 mg Fluticasone/Salmeterol (Advair 500-50 Diskus) 1 puff INH BID [facility] Last Admin: 10/16/17 20:06 Dose: Not Given Simvastatin (Zocor) 20 mg PO QPM [facility] Last Admin: 10/16/17 20:05 Dose: 20 mg Sodium Chloride (Saline Flush) 10 ml IV Q8 [facility] Last Admin: 10/16/17 20:05 Dose: 10 ml Spironolactone (Aldactone) 25 mg PO QDAY [facility] Last Admin: 10/16/17 08:35 Dose: 25 mg Throat Lozenges (Cepacol) 1 lozenge PO PRN PRN PRN Reason: Sore Throat Trimethoprim/Sulfamethoxazole (Bactrim Ds) 1 tab PO BID [facility] Last Admin: 10/16/17 20:05 Dose: 1 tab Medical - PN: A/P - Time Spent With Patient Total time spent is greater than 50% in coordination of care (as documented) at patient's floor/unit and/or counseling patient: - Narrative A/P Narrative: + acute Exacerbation of asthma most likely related to URI/pneumonia. Finished course of Levofloxacin as outpt. CXR: resolved pneumonia possibly persistent asthma due to smoking and exposure to animal dander Continue neb treatment, prednisone, she will likely have a protracted clinical course CT scan reviewed possible inflammation, infection, vs fibrosis viral vs pcp pna , PE is neg, Probably will repeat CT as outpatient, pulm consult if patient does not improve much will need discharge on long taper of prednisone. Acute hypoxic resp failiure on oxygen via nc3.5 L of oxygen today, try to wean off as tolerated low complement levels Carmella levels and vascular to spinal pending, rheumatoid factor is pending, low complements, autoimmune panel pending, + Acute bronchitis/pneumonia most likely viral CXR showed resolving pneumonia CT scan shows infiltrative pattern, see above Acute Sinusitis bactrim started. seems to be helping. as mrsa is not covered with previous regimes. + HTN Continue home meds + Morbid Obesity states that repeat sleep study didn't show THANH. + Chronic back pain Continue home meds, avoid IV pain meds + Hyperkalemia kayexelate given x 21/10 resolved DVT prophylaxis: Lovenox Code status: Full Medical - PN: Qual - VTE Deep Vein Thrombosis/Pulmonary Embolism Present on Admission: No
[2017-10-16] MEDS: ONDANSETRON ODT 4 MG TABLET SL PRN (21:40)
[2017-10-17] MEDS: guaiFENesin/CODEINE 10 ML UDC PO PRN ×4 (00:16→23:40)
[2017-10-17] MEDS: HYDROcodone/APAP 10/325MG TABLET PO PRN ×4 (00:17→20:21)
[2017-10-17 05:45] LABS: Basophils # (Auto) 0 K/mcL (0.0-0.3); Basophils % (Auto) 0.1 % (0.0-2.0); Eosinophils # (Auto) 0.3 K/mcL (0.0-0.7); Eosinophils % (Auto) 2.6 % (0.0-7.0); Granulocytes % (Auto) 61.2 % (38.0-78.0); Lymphocytes # (Auto) 2.9 K/mcL (1.5-4.8); Lymphocytes % (Auto) 28.7 % (15.5-49.0); Mean Corpuscular HGB Conc 33.1 g/dL (31.0-36.0); Mean Corpuscular Hemoglobin 30.8 pg (26.0-34.0); Monocytes # (Auto) 0.8 K/mcL (0.1-0.9); Monocytes % (Auto) 7.4 % (1.0-12.0); Platelet Count 290 K/mcL (140-440); RBC 4.85 M/mcL (4.00-5.20); Red Cell Distribution Width 13.9 % (11.5-14.5)
[2017-10-17] MEDS: 0.9 % SODIUM CHLORIDE 10 ML SYRINGE IV SCH ×3 (06:09→20:22)
[2017-10-17 06:13] LABS: ALT/SGPT 71 U/l (0-40); Albumin 4.1 gm/dL (3.2-5.2); Albumin/Globulin Ratio 1.6 (1.0-2.3); Alkaline Phosphatase 48 U/L (39-117); Bilirubin,Direct < 0.2 mg/dL (0.0-0.3); Blood Urea Nitrogen 13 mg/dl (6-20); Gamma Glutamyl Transpeptidase 41 U/L (5-36); Uric Acid 3.3 mg/dL (2.5-8.0)
[2017-10-17] MEDS: IPRATROPIUM/ALBUTEROL 3 ML AMPUL.NEB NEB SCH ×4 (07:27→19:53)
[2017-10-17] MEDS: ENOXAPARIN 40 MG/0.4 ML SYRINGE SQ SCH (08:43)
[2017-10-17] MEDS: NYSTATIN 500,000 UNITS/5 ML ORAL.SUSP SSW SCH ×3 (08:44→20:21)
[2017-10-17] MEDS: ESTROGENS, CONJUGATED 0.625 MG TABLET PO SCH (08:45)
[2017-10-17] MEDS: GABAPENTIN 300 MG CAPSULE PO SCH ×3 (08:45→20:21)
[2017-10-17] MEDS: PANTOPRAZOLE 40 MG TABLET PO SCH (08:45)
[2017-10-17] MEDS: ATENOLOL 50 MG TABLET PO SCH (08:45)
[2017-10-17] MEDS: LEVOTHYROXINE 75 MCG TABLET PO SCH (08:45)
[2017-10-17] MEDS: CLOPIDOGREL 75 MG TABLET PO SCH (08:46)
[2017-10-17] MEDS: amLODIPine 10 MG TABLET PO SCH (08:46)
[2017-10-17] MEDS: FUROSEMIDE 40 MG TABLET PO SCH ×2 (08:47→16:00)
[2017-10-17] MEDS: OXYMETAZOLINE 1 SPRAY BOTTLE NAS SCH (08:51)
[2017-10-17] MEDS: FLUTICASONE/SALMETEROL 500/50 INHALER #14 INH SCH ×2 (08:52→20:22)
[2017-10-17] MEDS: SPIRONOLACTONE 25 MG TABLET PO SCH (09:00)
[2017-10-17] MEDS: SULFAMETHOXAZOLE/TRIMETHOPRIM 1 TABLET PO SCH ×2 (09:00→20:21)
[2017-10-17] MEDS: predniSONE 20 MG TABLET PO SCH (09:00)
--- NOTE | 2017-10-17 09:47 | XRay Report ---
HISTORY: Reason for Exam:shortness of breath and pulmonary infiltrates FINDINGS: There is a mild interstitial and alveolar infiltrate in the left upper lobe extending from the hilum to the apex. There is mild involvement lateral to the left hilum. Subtle increased interstitial lung markings are seen lateral to the right upper hilum. The infiltrates have improved since the recent CT done on 10/13/17. No adenopathy is detected and there is no pleural effusion. The heart size is normal. IMPRESSION: Improving bilateral pulmonary infiltrates Interpreted and Authenticated by: Mic Rosales 10/17/17
[2017-10-17] MEDS: BUDESONIDE 0.5 MG/2 ML AMPUL.NEB NEB SCH ×2 (11:20→21:16)
[2017-10-17] MEDS: methylPREDNISolone SOD SUCC 125 MG/2 ML VIAL IV SCH ×3 (12:14→21:38)
[2017-10-17] MEDS: IBUPROFEN 200 MG TABLET PO SCH ×3 (13:06→20:21)
[2017-10-17] MEDS ORDERED: ALPRAZolam 0.5 MG TABLET PO SCH (15:00)
[2017-10-17] MEDS ORDERED: GABAPENTIN 100 MG CAPSULE PO SCH (15:00)
--- NOTE | 2017-10-17 17:12 | Internal Med Progress Note ---
Medical - PN: Subj Patient information: Note initiated : 10/17/17 at 5:07 pm Service Date, if different from initiated Date: [] Patient: Esperanza Irwin 56 y/o F admitted on 10/11/17 for SOB, Sepsis Workup/Exacerbation of Asthma. Chief Complaint: [] Interval history: Admitted 10/11 with following problems: + Exacerbation of asthma most likely related to URI/pneumonia possibly persistent asthma due to smoking and exposure to animal dander + Acute bronchitis/pneumonia most likely viral CXR showed resolving pneumonia + HTN + Morbid Obesity states that repeat sleepstudy didn't show THANH. + Chronic back pain Overnight developed worsening SOB a/w high oxygen requirement to 15 L. Patient transferred to tele unit for closer observation, and BiPAP support October 11: Had stable night on BiPAP, got few hours sleep. This am, breathing better. Still requiring 8L oxygen via HFNC Minimal cough. Afebrile. October 12: Still on 8L O2. Feeling slightly better. C/O CORONADO due to coughing Didn't want use the BIPAP last night. Hemodynamics stable Will transfer to med floor October 13 patient seen examined, no acute overnight events, still on oxygen bottle of xanax found with the patient , pt denies using these meds at hoem, but it seems that there were periods when she was difficult to arouse will not use IV narcotic pain meds and try to verify dosing of oral narcotis too ct chest done neg for pe, does show ? fibrosis, inflammation, infection . CT Sinus done shows sinusitis treated with antibiotics levoflox and zithromax. Procalcitonin is neg Will just use bactrim for sinusitis for now given she is complaining of symptoms , Will likely need repeat CT chest later to see if this is resolved She is still wheezing and needing high levels of oxygen. continue steroids and duonebs. october 14 patient seen examined she complains about a frontal headache, however is able to rest well. atient feels that her breathing is better. She is grateful for the care she has received so far. CT scan findings reviewed with her, not entirely sure if the findings of the CAT scan represent a pneumonia inflammation micro-aspirations. Patient has a low C3 and a low C4 however normal ESR and CRP. Given sinusitis as well as possible changes in the lungs get carmella with comphrensive panel, check anca levels. pt is already on steroids, doubt if tyhere is an autoimmue process though. check c3 and c4 again. October 15 patient seen examined, after being in the dark in the room, with her daughter and a granddaughter. The patient notes that she still has a headache. In the light bothers her. She has no neck stiffness. No history of any migraine disease. CT scan of the sinuses showed sinusitis. She still notes shortness of breath and cough however this is improving slowly. The patient's lab work is positive for carmella 1:160 titer positive, nucleolar pattern, low C3 and low C4 again present today. I reviewed the case with rheumatology who did not feel that this is related to lupus. Advised to send a comprehensive panel, vasculitis panel and rheumatoid factor for this patient which was sent Patient status on 5 L of oxygen, still has poor air entry and bilateral expiratory wheezes. He remains on steroids and DuoNeb's. Continue on Bactrim october 16 [t seen examined, did not sleep well last night was tired today notes breathing is better, on 3.5l oxygen now headache improving no other complaints. october 17 Pt seen examined she feels sick today, but no new complaints oxygen needs increased to 5L overnight, changed oral to iv steroids cxr shows improved pna/ infiltrate follow up immunology labs continue on bactrim Pertinent ROS: improevd headache, no dizziness Denies chest pain, palpitations present cough and shortness of breath Denies abdominal pain, nausea or vomiting. - Constitutional Vitals: Vital Signs Temp Pulse Resp BP Pulse Ox 97.9 F 62 18 126/60 91 10/17/17 15:44 10/17/17 15:11 10/17/17 15:44 10/17/17 15:44 10/17/17 15:44 Period Temp Pulse Resp BP Sys/Cortés Pulse Ox Last 24 Hr 97.0 F-98.7 F 60-78 18-22 103-130/60-78 90-94 Intake and Output 10/17/17 10/17/17 10/17/17 05:59 13:59 21:59 Intake Total 2880 / 2880 800 / 800 800 / 800 Output Total 3000 / 3000 400 / 400 400 / 400 Balance -120 / -120 400 / 400 400 / 400 Weight 294 lb Patient Weight 10/18/17 05:59 Weight 294 lb Intake & Output: Intake & Output 10/17/17 10/17/17 10/17/17 05:59 13:59 21:59 Intake Total 2880 / 2880 800 / 800 800 / 800 Output Total 3000 / 3000 400 / 400 400 / 400 Balance -120 / -120 400 / 400 400 / 400 Weight 294 lb Intake: Oral 2880 / 2880 800 / 800 800 / 800 Output: Void Amount 3000 / 3000 400 / 400 400 / 400 Other: Meal Nourishment/Supplement Lunch Percent of Meal Consumed 100% 100% Feeding Ability Independent Independent Exam: Constitutional; Afebrile, cooperative, alert, not in distress. Eyes- No icterus, , No periorbital swelling Ears- Ext ear normal, hearing normal to conversation. Neck- Midline trachea, supple Respiratory system: Air Entry equal on both sides, poor air entry, worse than yesterday, hannah exp wheezing. CVS- Rate rhythm regular, S1,S2 heard, no gallop, no rub. Abdomen- Soft nontender abdomen, no organomegaly, no tenderness, no guarding or rigidity, OPERATIONS LOGISTICS ANALYST- AOOx3, moving all extremities, no gross focal deficit noted. Medical - PN: Obj Da - Labs CBC & Chem 7: 10/17/17 04:50 10/17/17 04:50 Labs: Abnormal Lab Results 10/17/17 10/16/17 10/15/17 04:50 06:17 05:05 Chloride 88 L 89 L Carbon Dioxide 36 H 35 H Calcium 8.5 L GGT 41 H 38 H AST 41 H 41 H ALT 71 H 58 H Lactate Dehydrogenase 305 H 283 H Triglycerides 261 H 158 H Rheumatoid Factor 22 H Complement C3 53.0 L Complement C4 12.9 L 10/15/17 05:05 Chloride 90 L Carbon Dioxide 35 H Calcium GGT 39 H AST ALT 50 H Lactate Dehydrogenase 330 H Triglycerides 158 H Rheumatoid Factor Complement C3 Complement C4 Meds: Medications Hydrocodone Bitart/Acetaminophen ([place] 10/325mg) 1 tab PO TIDP PRN PRN Reason: pain Last Admin: 10/17/17 15:09 Dose: 1 tab Albuterol/Ipratropium (Duoneb) 3 ml NEB [id number] Last Admin: 10/17/17 15:10 Dose: 3 ml Alprazolam (Xanax) 0.5 mg PO TIDP PRN PRN Reason: Anxiety Last Admin: 10/16/17 22:55 Dose: 0.5 mg Amlodipine Besylate (Norvasc) 10 mg PO DAILY [facility] Last Admin: 10/17/17 08:46 Dose: 10 mg Atenolol (Tenormin) 50 mg PO DAILY [facility] Last Admin: 10/17/17 08:45 Dose: 50 mg Baclofen (Lioresal) 20 mg PO [facility] Budesonide (Pulmicort) 0.5 mg NEB Q12H [facility] Last Admin: 10/17/17 11:20 Dose: 0.5 mg Clopidogrel Bisulfate (Plavix) 75 mg PO QDAY [facility] Last Admin: 10/17/17 08:46 Dose: 75 mg Enoxaparin Sodium (Lovenox) 40 mg SQ DAILY [facility] Last Admin: 10/17/17 08:43 Dose: 40 mg Estrogens Conjugated (Premarin) 1.25 mg PO DAILY [facility] Last Admin: 10/17/17 08:45 Dose: 1.25 mg Furosemide (Lasix) 40 mg PO BIDD [facility] Last Admin: 10/17/17 16:00 Dose: 40 mg Gabapentin (Neurontin) 300 mg PO TID [facility] Last Admin: 10/17/17 15:05 Dose: 300 mg Guaifenesin/Codeine Phosphate (Robitussin Ac) 10 ml PO Q4HP PRN PRN Reason: Cough Last Admin: 10/17/17 08:44 Dose: 10 ml Acetaminophen (Ofirmev) 1,000 mg in 100 mls @ 200 mls/hr IV Q6HP PRN PRN Reason: PAIN/FEVER > 101 Last Infusion: 10/15/17 17:42 Dose: Infused Ibuprofen (Motrin) 400 mg PO QID [facility] Last Admin: 10/17/17 13:06 Dose: 400 mg Levothyroxine Sodium (Synthroid) 75 mcg PO QAMAC [facility] Last Admin: 10/17/17 08:45 Dose: 75 mcg Magnesium Hydroxide (Milk Of Magnesia) 30 ml PO DAILYP PRN PRN Reason: Constipation Methylprednisolone Sodium Succinate (Solu-Medrol) 62.5 mg IV Q8 [facility] Last Admin: 10/17/17 15:59 Dose: 62.5 mg Nystatin (Nystatin) 500,000 units SSW TID [facility] Last Admin: 10/17/17 15:01 Dose: 500,000 units Ondansetron HCl (Zofran Odt) 4 mg SL Q6HP PRN PRN Reason: Nausea And Vomiting Last Admin: 10/16/17 21:40 Dose: 4 mg Ondansetron HCl (Zofran) 4 mg IV Q4HP PRN PRN Reason: Nausea And Vomiting Last Admin: 10/14/17 21:04 Dose: 4 mg Pantoprazole Sodium (Protonix) 40 mg PO QAMAC [facility] Last Admin: 10/17/17 08:45 Dose: 40 mg Fluticasone/Vilanterol [Breo Ellipta] 100-25 Mcg Inhaler 1 dose INH Q24H [facility] Last Admin: 10/17/17 15:05 Dose: Not Given Fluticasone/Salmeterol (Advair 500-50 Diskus) 1 puff INH BID [facility] Last Admin: 10/17/17 08:52 Dose: Not Given Simvastatin (Zocor) 20 mg PO QPM [facility] Last Admin: 10/16/17 20:05 Dose: 20 mg Sodium Chloride (Saline Flush) 10 ml IV Q8 [facility] Last Admin: 10/17/17 16:01 Dose: 10 ml Spironolactone (Aldactone) 25 mg PO QDAY [facility] Last Admin: 10/17/17 09:00 Dose: 25 mg Throat Lozenges (Cepacol) 1 lozenge PO PRN PRN PRN Reason: Sore Throat Trimethoprim/Sulfamethoxazole (Bactrim Ds) 1 tab PO BID [facility] Last Admin: 10/17/17 09:00 Dose: 1 tab Medical - PN: A/P - Time Spent With Patient Total time spent is greater than 50% in coordination of care (as documented) at patient's floor/unit and/or counseling patient: - Narrative A/P Narrative: + acute Exacerbation of asthma most likely related to URI/pneumonia. Finished course of Levofloxacin as outpt. CXR: resolved pneumonia possibly persistent asthma due to smoking and exposure to animal dander Continue neb treatment, prednisone, she will likely have a protracted clinical course CT scan reviewed possible inflammation, infection, vs fibrosis viral vs pcp pna , PE is neg, Probably will repeat CT as outpatient, pulm consult if patient does not improve much IV steroids now, will need long taper at discharge. Acute hypoxic resp failiure on oxygen via nc 4.5 to 5 L of oxygen today, try to wean off as tolerated low complement levels Carmella levels and vascular to spinal pending, rheumatoid factor is pending, low complements, autoimmune panel pending, + Acute bronchitis/pneumonia most likely viral CXR showed resolving pneumonia CT scan shows infiltrative pattern, see above Acute Sinusitis bactrim started. seems to be helping. as mrsa is not covered with previous regimes. + HTN Continue home meds + Morbid Obesity states that repeat sleep study didn't show THANH. + Chronic back pain Continue home meds, avoid IV pain meds + Hyperkalemia kayexelate given x 21/10 resolved DVT prophylaxis: Lovenox Code status: Full Medical - PN: Qual - VTE Deep Vein Thrombosis/Pulmonary Embolism Present on Admission: No
[2017-10-17] MEDS: SIMVASTATIN 20 MG TABLET PO SCH (20:21)
[2017-10-17] MEDS: ALPRAZolam 0.5 MG TABLET PO PRN (21:38)
[2017-10-17] MEDS: BACLOFEN 10 MG TABLET PO SCH (21:38)
[2017-10-18] MEDS: HYDROcodone/APAP 10/325MG TABLET PO PRN ×5 (03:38→22:44)
[2017-10-18] MEDS: IPRATROPIUM/ALBUTEROL 3 ML AMPUL.NEB NEB SCH ×6 (03:39→22:59)
[2017-10-18] MEDS: 0.9 % SODIUM CHLORIDE 10 ML SYRINGE IV SCH ×3 (06:14→21:18)
[2017-10-18] MEDS: methylPREDNISolone SOD SUCC 125 MG/2 ML VIAL IV SCH ×3 (06:14→21:10)
[2017-10-18] MEDS: ALPRAZolam 0.5 MG TABLET PO PRN ×3 (06:47→21:44)
[2017-10-18] MEDS: BUDESONIDE 0.5 MG/2 ML AMPUL.NEB NEB SCH ×2 (07:34→21:19)
[2017-10-18 07:49] LABS: Basophils # (Auto) 0 K/mcL (0.0-0.3); Basophils % (Auto) 0.1 % (0.0-2.0); Eosinophils # (Auto) 0.2 K/mcL (0.0-0.7); Eosinophils % (Auto) 1.3 % (0.0-7.0); Granulocytes % (Auto) 92.1 % (38.0-78.0); Lymphocytes # (Auto) 0.6 K/mcL (1.5-4.8); Lymphocytes % (Auto) 4.6 % (15.5-49.0); Mean Cell Volume 92.9 fL (80.0-100.0); Mean Corpuscular HGB Conc 33.4 g/dL (31.0-36.0); Monocytes # (Auto) 0.3 K/mcL (0.1-0.9); Monocytes % (Auto) 1.9 % (1.0-12.0); Platelet Count 320 K/mcL (140-440); RBC 4.92 M/mcL (4.00-5.20); Red Cell Distribution Width 14.4 % (11.5-14.5)
[2017-10-18] MEDS: MAGNESIUM HYDROXIDE 30 ML ORAL.SUSP PO PRN (07:55)
[2017-10-18] MEDS: PANTOPRAZOLE 40 MG TABLET PO SCH (07:55)
[2017-10-18] MEDS: LEVOTHYROXINE 75 MCG TABLET PO SCH (07:55)
[2017-10-18] MEDS: FUROSEMIDE 40 MG TABLET PO SCH ×2 (07:55→16:46)
[2017-10-18 08:11] LABS: ALT/SGPT 70 U/l (0-40); Albumin 4.3 gm/dL (3.2-5.2); Albumin/Globulin Ratio 1.6 (1.0-2.3); Alkaline Phosphatase 50 U/L (39-117); Bilirubin,Direct < 0.2 mg/dL (0.0-0.3); Blood Urea Nitrogen 23 mg/dl (6-20); Gamma Glutamyl Transpeptidase 44 U/L (5-36); Uric Acid 3.4 mg/dL (2.5-8.0)
[2017-10-18] MEDS: ATENOLOL 50 MG TABLET PO SCH (09:07)
[2017-10-18] MEDS: CLOPIDOGREL 75 MG TABLET PO SCH (09:07)
[2017-10-18] MEDS: SULFAMETHOXAZOLE/TRIMETHOPRIM 1 TABLET PO SCH ×2 (09:07→21:09)
[2017-10-18] MEDS: NYSTATIN 500,000 UNITS/5 ML ORAL.SUSP SSW SCH ×3 (09:07→21:08)
[2017-10-18] MEDS: SPIRONOLACTONE 25 MG TABLET PO SCH (09:07)
[2017-10-18] MEDS: GABAPENTIN 300 MG CAPSULE PO SCH ×3 (09:07→21:10)
[2017-10-18] MEDS: ESTROGENS, CONJUGATED 0.625 MG TABLET PO SCH (09:07)
[2017-10-18] MEDS: amLODIPine 10 MG TABLET PO SCH (09:07)
[2017-10-18] MEDS: IBUPROFEN 200 MG TABLET PO SCH ×4 (09:08→21:08)
[2017-10-18] MEDS: ENOXAPARIN 40 MG/0.4 ML SYRINGE SQ SCH (09:08)
[2017-10-18] MEDS: FLUTICASONE/SALMETEROL 500/50 INHALER #14 INH SCH ×2 (09:13→22:05)
--- NOTE | 2017-10-18 11:33 | Internal Med Progress Note ---
Medical - PN: Subj Patient information: Note initiated : 10/18/17 at 11:28 am Service Date, if different from initiated Date: [] Patient: Esperanza Irwin 56 y/o F admitted on 10/11/17 for SOB, Sepsis Workup/Exacerbation of Asthma. Chief Complaint: [] Interval history: Admitted 10/11 with following problems: + Exacerbation of asthma most likely related to URI/pneumonia possibly persistent asthma due to smoking and exposure to animal dander + Acute bronchitis/pneumonia most likely viral CXR showed resolving pneumonia + HTN + Morbid Obesity states that repeat sleepstudy didn't show THANH. + Chronic back pain Overnight developed worsening SOB a/w high oxygen requirement to 15 L. Patient transferred to tele unit for closer observation, and BiPAP support October 11: Had stable night on BiPAP, got few hours sleep. This am, breathing better. Still requiring 8L oxygen via HFNC Minimal cough. Afebrile. October 12: Still on 8L O2. Feeling slightly better. C/O CORONADO due to coughing Didn't want use the BIPAP last night. Hemodynamics stable Will transfer to med floor October 13 patient seen examined, no acute overnight events, still on oxygen bottle of xanax found with the patient , pt denies using these meds at hoem, but it seems that there were periods when she was difficult to arouse will not use IV narcotic pain meds and try to verify dosing of oral narcotis too ct chest done neg for pe, does show ? fibrosis, inflammation, infection . CT Sinus done shows sinusitis treated with antibiotics levoflox and zithromax. Procalcitonin is neg Will just use bactrim for sinusitis for now given she is complaining of symptoms , Will likely need repeat CT chest later to see if this is resolved She is still wheezing and needing high levels of oxygen. continue steroids and duonebs. october 14 patient seen examined she complains about a frontal headache, however is able to rest well. atient feels that her breathing is better. She is grateful for the care she has received so far. CT scan findings reviewed with her, not entirely sure if the findings of the CAT scan represent a pneumonia inflammation micro-aspirations. Patient has a low C3 and a low C4 however normal ESR and CRP. Given sinusitis as well as possible changes in the lungs get carmella with comphrensive panel, check anca levels. pt is already on steroids, doubt if tyhere is an autoimmue process though. check c3 and c4 again. October 15 patient seen examined, after being in the dark in the room, with her daughter and a granddaughter. The patient notes that she still has a headache. In the light bothers her. She has no neck stiffness. No history of any migraine disease. CT scan of the sinuses showed sinusitis. She still notes shortness of breath and cough however this is improving slowly. The patient's lab work is positive for carmella 1:160 titer positive, nucleolar pattern, low C3 and low C4 again present today. I reviewed the case with rheumatology who did not feel that this is related to lupus. Advised to send a comprehensive panel, vasculitis panel and rheumatoid factor for this patient which was sent Patient status on 5 L of oxygen, still has poor air entry and bilateral expiratory wheezes. He remains on steroids and DuoNeb's. Continue on Bactrim october 16 [t seen examined, did not sleep well last night was tired today notes breathing is better, on 3.5l oxygen now headache improving no other complaints. october 17 Pt seen examined she feels sick today, but no new complaints oxygen needs increased to 5L overnight, changed oral to iv steroids cxr shows improved pna/ infiltrate follow up immunology labs continue on bactrim 10/18-patient sitting on bed. No overnight events. On 4 L oxygen. Admitting the assistance of physical therapy around the nursing station. Tolerating diet. Denies chest pain shortness of breath fever or chills. No diarrhea. On IV steroids. Await autoimmune panel On Bactrim. - Constitutional Vitals: Vital Signs Temp Pulse Resp BP Pulse Ox 98.3 F 70 20 141/84 92 10/18/17 11:05 10/18/17 07:34 10/18/17 11:05 10/18/17 11:05 10/18/17 11:05 Period Temp Pulse Resp BP Sys/Cortés Pulse Ox Last 24 Hr 97.9 F-98.6 F 62-74 12-22 103-160/60-89 90-94 Intake and Output 10/17/17 10/18/17 10/18/17 21:59 05:59 13:59 Intake Total 1200 / 1200 2000 / 2000 360 / 360 Output Total 400 / 400 500 / 500 800 / 800 Balance 800 / 800 1500 / 1500 -440 / -440 Weight 292 lb 8 oz Intake & Output: Intake & Output 10/17/17 10/18/17 10/18/17 21:59 05:59 13:59 Intake Total 1200 / 1200 1999 / 1999 360 / 360 Output Total 400 / 400 500 / 500 800 / 800 Balance 800 / 800 1500 / 1500 -440 / -440 Weight 292 lb 8 oz Intake: Oral 1200 / 1200 1999 / 1999 360 / 360 Output: Void Amount 400 / 400 500 / 500 800 / 800 Other: Meal Dinner Nourishment/Supplement Breakfast Percent of Meal Consumed 100% 100% 100% Feeding Ability Independent Independent # Voids 3 General appearance: morbidly obese, no acute distress Exam: patient good spirits nonlabored breathing Nondistended abdomen On 4 L oxygen No anxiety Medical - PN: Obj Da - Labs CBC & Chem 7: 10/18/17 06:30 10/18/17 06:30 Labs: Abnormal Lab Results 10/18/17 10/18/17 10/17/17 06:30 06:30 04:50 WBC 13.2 H Hgb 15.3 H Gran % 92.1 H Lymph % (Auto) 4.6 L Gran # 12.1 H Lymph # (Auto) 0.6 L Chloride 90 L 88 L Carbon Dioxide 31 H 36 H BUN 23 H Glucose 129 H Calcium GGT 44 H 41 H AST 41 H ALT 70 H 71 H Lactate Dehydrogenase 289 H 305 H Triglycerides 164 H 261 H 10/16/17 06:17 WBC Hgb Gran % Lymph % (Auto) Gran # Lymph # (Auto) Chloride 89 L Carbon Dioxide 35 H BUN Glucose Calcium 8.5 L GGT 38 H AST 41 H ALT 58 H Lactate Dehydrogenase 283 H Triglycerides 158 H Meds: Medications Hydrocodone Bitart/Acetaminophen ([place] 10/325mg) 1 tab PO Q4HP PRN PRN Reason: PAIN LEVEL 3-6 Last Admin: 10/18/17 09:07 Dose: 1 tab Albuterol/Ipratropium (Duoneb) 3 ml NEB [id number] LEIXE Last Admin: 10/18/17 07:34 Dose: 3 ml Alprazolam (Xanax) 0.5 mg PO TIDP PRN PRN Reason: Anxiety Last Admin: 10/18/17 06:47 Dose: 0.5 mg Amlodipine Besylate (Norvasc) 10 mg PO DAILY [facility] Last Admin: 10/18/17 09:07 Dose: 10 mg Atenolol (Tenormin) 50 mg PO DAILY [facility] Last Admin: 10/18/17 09:07 Dose: 50 mg Baclofen (Lioresal) 20 mg PO HS [facility] Last Admin: 10/17/17 21:38 Dose: 20 mg Budesonide (Pulmicort) 0.5 mg NEB Q12H [facility] Last Admin: 10/18/17 07:34 Dose: 0.5 mg Clopidogrel Bisulfate (Plavix) 75 mg PO QDAY [facility] Last Admin: 10/18/17 09:07 Dose: 75 mg Enoxaparin Sodium (Lovenox) 40 mg SQ DAILY [facility] Last Admin: 10/18/17 09:08 Dose: 40 mg Estrogens Conjugated (Premarin) 1.25 mg PO DAILY [facility] Last Admin: 10/18/17 09:07 Dose: 1.25 mg Furosemide (Lasix) 40 mg PO BIDD [facility] Last Admin: 10/18/17 07:55 Dose: 40 mg Gabapentin (Neurontin) 300 mg PO TID [facility] Last Admin: 10/18/17 09:07 Dose: 300 mg Guaifenesin/Codeine Phosphate (Robitussin Ac) 10 ml PO Q4HP PRN PRN Reason: Cough Last Admin: 10/17/17 23:40 Dose: 10 ml Acetaminophen (Ofirmev) 1,000 mg in 100 mls @ 200 mls/hr IV Q6HP PRN PRN Reason: PAIN/FEVER > 101 Last Infusion: 10/15/17 17:42 Dose: Infused Ibuprofen (Motrin) 400 mg PO QID [facility] Last Admin: 10/18/17 09:08 Dose: 400 mg Levothyroxine Sodium (Synthroid) 75 mcg PO QAMAC [facility] Last Admin: 10/18/17 07:55 Dose: 75 mcg Magnesium Hydroxide (Milk Of Magnesia) 30 ml PO DAILYP PRN PRN Reason: Constipation Last Admin: 10/18/17 07:55 Dose: 30 ml Methylprednisolone Sodium Succinate (Solu-Medrol) 62.5 mg IV Q8 [facility] Last Admin: 10/18/17 06:14 Dose: 62.5 mg Nystatin (Nystatin) 500,000 units SSW TID [facility] Last Admin: 10/18/17 09:07 Dose: 500,000 units Ondansetron HCl (Zofran Odt) 4 mg SL Q6HP PRN PRN Reason: Nausea And Vomiting Last Admin: 10/16/17 21:40 Dose: 4 mg Ondansetron HCl (Zofran) 4 mg IV Q4HP PRN PRN Reason: Nausea And Vomiting Last Admin: 10/14/17 21:04 Dose: 4 mg Pantoprazole Sodium (Protonix) 40 mg PO QAMAC [facility] Last Admin: 10/18/17 07:55 Dose: 40 mg Fluticasone/Vilanterol [Breo Ellipta] 100-25 Mcg Inhaler 1 dose INH Q24H [facility] Last Admin: 10/18/17 09:36 Dose: Not Given Fluticasone/Salmeterol (Advair 500-50 Diskus) 1 puff INH BID [facility] Last Admin: 10/18/17 09:13 Dose: Not Given Simvastatin (Zocor) 20 mg PO QPM [facility] Last Admin: 10/17/17 20:21 Dose: 20 mg Sodium Chloride (Saline Flush) 10 ml IV Q8 [facility] Last Admin: 10/18/17 06:14 Dose: 10 ml Spironolactone (Aldactone) 25 mg PO QDAY [facility] Last Admin: 10/18/17 09:07 Dose: 25 mg Throat Lozenges (Cepacol) 1 lozenge PO PRN PRN PRN Reason: Sore Throat Trimethoprim/Sulfamethoxazole (Bactrim Ds) 1 tab PO BID [facility] Last Admin: 10/18/17 09:07 Dose: 1 tab Medical - PN: A/P - Time Spent With Patient Total time spent is greater than 50% in coordination of care (as documented) at patient's floor/unit and/or counseling patient: 25 - 35 minutes - Narrative A/P Narrative: + acute Exacerbation of asthma- clinically improving- status post course ofLevofloxacin as outpt. CXR: resolved pneumonia possibly persistent asthma due to smoking and exposure to animal dander. patient however very motivated to quit smoking continue steroids and bronchodilators. CT scan reviewed possible inflammation, infection, vs fibrosis viral vs pcp pna , PE is neg, Probably will repeat CT as outpatient, pulm consult if patient does not improve much will need long taper at discharge. Acute hypoxic resp failiure on oxygen via nc 4.5 to 5 L of oxygen today, try to wean off as tolerated low complement levels Carmella levels and vascular to spinal pending, rheumatoid factor is pending, low complements, autoimmune panel pending, + Acute bronchitis/pneumonia most likely viral CXR showed resolving pneumonia CT scan shows infiltrative pattern, see above Acute Sinusitis0-continue Bactrim + HTN-Continue home meds + Morbid Obesity-states that repeat sleep study didn't show THANH. + Chronic back pain-Continue home meds, avoid IV pain meds + Hyperkalemia-resolved status post Kayexalate DVT prophylaxis: Lovenox Code status: Full plan * continue IV steroids bronchodilators with long taper on discharge * Supplemental oxygen * Continue Bactrim for sinusitis * Pre-existing medical condition management on home meds * Await autoimmune pane/rheumatoid factor Medical - PN: Qual - VTE Deep Vein Thrombosis/Pulmonary Embolism Present on Admission: No
[2017-10-18] MEDS: BACLOFEN 10 MG TABLET PO SCH (21:08)
[2017-10-18] MEDS: SIMVASTATIN 20 MG TABLET PO SCH (21:10)
[2017-10-18] MEDS: guaiFENesin/CODEINE 10 ML UDC PO PRN (23:57)
[2017-10-19] MEDS: HYDROcodone/APAP 10/325MG TABLET PO PRN ×5 (03:13→20:13)
[2017-10-19] MEDS: methylPREDNISolone SOD SUCC 125 MG/2 ML VIAL IV SCH (05:40)
[2017-10-19] MEDS: 0.9 % SODIUM CHLORIDE 10 ML SYRINGE IV SCH ×3 (05:41→21:57)
[2017-10-19 06:46] LABS: Basophils # (Auto) 0 K/mcL (0.0-0.3); Basophils % (Auto) 0 % (0.0-2.0); Eosinophils # (Auto) 0.2 K/mcL (0.0-0.7); Eosinophils % (Auto) 1.1 % (0.0-7.0); Granulocytes % (Auto) 94.8 % (38.0-78.0); Lymphocytes # (Auto) 0.5 K/mcL (1.5-4.8); Lymphocytes % (Auto) 2.5 % (15.5-49.0); Mean Cell Volume 92.9 fL (80.0-100.0); Mean Corpuscular HGB Conc 33.4 g/dL (31.0-36.0); Monocytes # (Auto) 0.3 K/mcL (0.1-0.9); Monocytes % (Auto) 1.6 % (1.0-12.0); Platelet Count 331 K/mcL (140-440); RBC 4.86 M/mcL (4.00-5.20); Red Cell Distribution Width 14.4 % (11.5-14.5)
[2017-10-19 07:17] LABS: ALT/SGPT 67 U/l (0-40); Albumin 4.5 gm/dL (3.2-5.2); Albumin/Globulin Ratio 1.8 (1.0-2.3); Alkaline Phosphatase 46 U/L (39-117); Bilirubin,Direct < 0.2 mg/dL (0.0-0.3); Blood Urea Nitrogen 33 mg/dl (6-20); Gamma Glutamyl Transpeptidase 47 U/L (5-36); Uric Acid 3.5 mg/dL (2.5-8.0)
[2017-10-19] MEDS: FUROSEMIDE 40 MG TABLET PO SCH ×2 (07:18→15:47)
[2017-10-19] MEDS: LEVOTHYROXINE 75 MCG TABLET PO SCH (07:19)
[2017-10-19] MEDS: PANTOPRAZOLE 40 MG TABLET PO SCH (07:19)
[2017-10-19] MEDS: MAGNESIUM HYDROXIDE 30 ML ORAL.SUSP PO PRN (07:19)
[2017-10-19] MEDS: IPRATROPIUM/ALBUTEROL 3 ML AMPUL.NEB NEB SCH ×5 (07:38→22:56)
[2017-10-19] MEDS: BUDESONIDE 0.5 MG/2 ML AMPUL.NEB NEB SCH ×2 (07:38→21:06)
[2017-10-19] MEDS: IBUPROFEN 200 MG TABLET PO SCH ×4 (07:54→21:54)
[2017-10-19] MEDS: SPIRONOLACTONE 25 MG TABLET PO SCH (08:53)
[2017-10-19] MEDS: ESTROGENS, CONJUGATED 0.625 MG TABLET PO SCH (08:53)
[2017-10-19] MEDS: ATENOLOL 50 MG TABLET PO SCH (08:53)
[2017-10-19] MEDS: CLOPIDOGREL 75 MG TABLET PO SCH (08:53)
[2017-10-19] MEDS: amLODIPine 10 MG TABLET PO SCH (08:53)
[2017-10-19] MEDS: GABAPENTIN 300 MG CAPSULE PO SCH ×3 (08:53→21:54)
[2017-10-19] MEDS: SULFAMETHOXAZOLE/TRIMETHOPRIM 1 TABLET PO SCH ×2 (08:53→21:54)
[2017-10-19] MEDS: NYSTATIN 500,000 UNITS/5 ML ORAL.SUSP SSW SCH ×3 (08:54→21:54)
[2017-10-19] MEDS: ENOXAPARIN 40 MG/0.4 ML SYRINGE SQ SCH (08:54)
[2017-10-19] MEDS ORDERED: POLYETHYLENE GLYCOL 3350 17 GM PACKET PO PRN (09:03)
[2017-10-19] MEDS: FLUTICASONE/SALMETEROL 500/50 INHALER #14 INH SCH ×2 (09:58→21:59)
--- NOTE | 2017-10-19 10:49 | Internal Med Progress Note ---
Medical - PN: Subj Patient information: Note initiated : 10/19/17 at 10:47 am Service Date, if different from initiated Date: [] Patient: Esperanza Irwin 56 y/o F admitted on 10/11/17 for SOB, Sepsis Workup/Exacerbation of Asthma. Chief Complaint: [] Interval history: Admitted 10/11 with following problems: + Exacerbation of asthma most likely related to URI/pneumonia possibly persistent asthma due to smoking and exposure to animal dander + Acute bronchitis/pneumonia most likely viral CXR showed resolving pneumonia + HTN + Morbid Obesity states that repeat sleepstudy didn't show THANH. + Chronic back pain Overnight developed worsening SOB a/w high oxygen requirement to 15 L. Patient transferred to tele unit for closer observation, and BiPAP support October 11: Had stable night on BiPAP, got few hours sleep. This am, breathing better. Still requiring 8L oxygen via HFNC Minimal cough. Afebrile. October 12: Still on 8L O2. Feeling slightly better. C/O CORONADO due to coughing Didn't want use the BIPAP last night. Hemodynamics stable Will transfer to med floor October 13 patient seen examined, no acute overnight events, still on oxygen bottle of xanax found with the patient , pt denies using these meds at hoem, but it seems that there were periods when she was difficult to arouse will not use IV narcotic pain meds and try to verify dosing of oral narcotis too ct chest done neg for pe, does show ? fibrosis, inflammation, infection . CT Sinus done shows sinusitis treated with antibiotics levoflox and zithromax. Procalcitonin is neg Will just use bactrim for sinusitis for now given she is complaining of symptoms , Will likely need repeat CT chest later to see if this is resolved She is still wheezing and needing high levels of oxygen. continue steroids and duonebs. october 14 patient seen examined she complains about a frontal headache, however is able to rest well. atient feels that her breathing is better. She is grateful for the care she has received so far. CT scan findings reviewed with her, not entirely sure if the findings of the CAT scan represent a pneumonia inflammation micro-aspirations. Patient has a low C3 and a low C4 however normal ESR and CRP. Given sinusitis as well as possible changes in the lungs get maricruz with comphrensive panel, check anca levels. pt is already on steroids, doubt if tyhere is an autoimmue process though. check c3 and c4 again. October 15 patient seen examined, after being in the dark in the room, with her daughter and a granddaughter. The patient notes that she still has a headache. In the light bothers her. She has no neck stiffness. No history of any migraine disease. CT scan of the sinuses showed sinusitis. She still notes shortness of breath and cough however this is improving slowly. The patient's lab work is positive for maricruz 1:160 titer positive, nucleolar pattern, low C3 and low C4 again present today. I reviewed the case with rheumatology who did not feel that this is related to lupus. Advised to send a comprehensive panel, vasculitis panel and rheumatoid factor for this patient which was sent Patient status on 5 L of oxygen, still has poor air entry and bilateral expiratory wheezes. He remains on steroids and DuoNeb's. Continue on Bactrim october 16 [t seen examined, did not sleep well last night was tired today notes breathing is better, on 3.5l oxygen now headache improving no other complaints. october 17 Pt seen examined she feels sick today, but no new complaints oxygen needs increased to 5L overnight, changed oral to iv steroids cxr shows improved pna/ infiltrate follow up immunology labs continue on bactrim 10/18-patient sitting on bed. No overnight events. On 4 L oxygen. Admitting the assistance of physical therapy around the nursing station. Tolerating diet. Denies chest pain shortness of breath fever or chills. No diarrhea. On IV steroids. Await autoimmune panel On Bactrim. 10/19-patient doing well however complains of lack of sleep and persistent back pain and spasm. Trazodone for sleep and baclofen 10 mg a.m.ordered for spasm. improved shortness of breath. White count 19.6.on 4 L oxygen. Tolerating physical therapy and ambulating. MARICRUZ positive however extended autoimmune panel pending - Constitutional Vitals: Vital Signs Temp Pulse Resp BP Pulse Ox 98.1 F 92 H 20 148/90 92 10/19/17 07:25 10/19/17 07:47 10/19/17 07:47 10/19/17 07:25 10/19/17 07:47 Period Temp Pulse Resp BP Sys/Cortés Pulse Ox Last 24 Hr 97.6 F-98.6 F 65-92 14-26 120-148/69-90 90-95 Intake and Output 10/18/17 10/19/17 10/19/17 20:59 05:59 13:59 Intake Total Output Total 500 / 500 Balance -500 / -500 Weight Intake & Output: Intake & Output 10/18/17 10/19/17 10/19/17 20:59 05:59 13:59 Intake Total Output Total 500 / 500 Balance -500 / -500 Weight Intake: Oral Output: Void Amount 500 / 500 Other: Meal Percent of Meal Consumed General appearance: morbidly obese Exam: no anxiety alert oriented Nonlabored breathing No pallor Medical - PN: Obj Da - Labs CBC & Chem 7: 10/19/17 04:40 10/19/17 04:40 Labs: Abnormal Lab Results 10/19/17 10/19/17 10/18/17 04:40 04:40 06:30 WBC 19.6 H Hgb 15.1 H Gran % 94.8 H Lymph % (Auto) 2.5 L Gran # 18.5 H Lymph # (Auto) 0.5 L Chloride 86 L 90 L Carbon Dioxide 33 H 31 H BUN 33 H 23 H Glucose 190 H 129 H GGT 47 H 44 H AST ALT 67 H 70 H Lactate Dehydrogenase 314 H 289 H Triglycerides 181 H 164 H 10/18/17 10/17/17 06:30 04:50 WBC 13.2 H Hgb 15.3 H Gran % 92.1 H Lymph % (Auto) 4.6 L Gran # 12.1 H Lymph # (Auto) 0.6 L Chloride 88 L Carbon Dioxide 36 H BUN Glucose GGT 41 H AST 41 H ALT 71 H Lactate Dehydrogenase 305 H Triglycerides 261 H Meds: Medications Hydrocodone Bitart/Acetaminophen ([place] 10/325mg) 1 tab PO Q4HP PRN PRN Reason: PAIN LEVEL 3-6 Last Admin: 10/19/17 07:19 Dose: 1 tab Albuterol/Ipratropium (Duoneb) 3 ml NEB [id number] Last Admin: 10/19/17 07:38 Dose: 3 ml Alprazolam (Xanax) 0.5 mg PO TIDP PRN PRN Reason: Anxiety Last Admin: 10/18/17 21:44 Dose: 0.5 mg Amlodipine Besylate (Norvasc) 10 mg PO DAILY [facility] Last Admin: 10/19/17 08:53 Dose: 10 mg Atenolol (Tenormin) 50 mg PO DAILY [facility] Last Admin: 10/19/17 08:53 Dose: 50 mg Baclofen (Lioresal) 20 mg PO HS [facility] Last Admin: 10/18/17 21:08 Dose: 20 mg Baclofen (Lioresal) 10 mg PO DAILY [facility] Budesonide (Pulmicort) 0.5 mg NEB Q12H [facility] Last Admin: 10/19/17 07:38 Dose: 0.5 mg Clopidogrel Bisulfate (Plavix) 75 mg PO QDAY [facility] Last Admin: 10/19/17 08:53 Dose: 75 mg Enoxaparin Sodium (Lovenox) 40 mg SQ DAILY [facility] Last Admin: 10/19/17 08:54 Dose: 40 mg Estrogens Conjugated (Premarin) 1.25 mg PO DAILY [facility] Last Admin: 10/19/17 08:53 Dose: 1.25 mg Furosemide (Lasix) 40 mg PO BIDD [facility] Last Admin: 10/19/17 07:18 Dose: 40 mg Gabapentin (Neurontin) 300 mg PO TID [facility] Last Admin: 10/19/17 08:53 Dose: 300 mg Guaifenesin/Codeine Phosphate (Robitussin Ac) 10 ml PO Q4HP PRN PRN Reason: Cough Last Admin: 10/18/17 23:57 Dose: 10 ml Acetaminophen (Ofirmev) 1,000 mg in 100 mls @ 200 mls/hr IV Q6HP PRN PRN Reason: PAIN/FEVER > 101 Last Infusion: 10/15/17 17:42 Dose: Infused Ibuprofen (Motrin) 400 mg PO QID [facility] Last Admin: 10/19/17 07:54 Dose: 400 mg Levothyroxine Sodium (Synthroid) 75 mcg PO QAMAC [facility] Last Admin: 10/19/17 07:19 Dose: 75 mcg Magnesium Hydroxide (Milk Of Magnesia) 30 ml PO DAILYP PRN PRN Reason: Constipation Last Admin: 10/19/17 07:19 Dose: 30 ml Methylprednisolone Sodium Succinate (Solu-Medrol) 62.5 mg IV Q8 [facility] Last Admin: 10/19/17 05:40 Dose: 62.5 mg Nystatin (Nystatin) 500,000 units SSW TID [facility] Last Admin: 10/19/17 08:54 Dose: 500,000 units Ondansetron HCl (Zofran Odt) 4 mg SL Q6HP PRN PRN Reason: Nausea And Vomiting Last Admin: 10/16/17 21:40 Dose: 4 mg Ondansetron HCl (Zofran) 4 mg IV Q4HP PRN PRN Reason: Nausea And Vomiting Last Admin: 10/14/17 21:04 Dose: 4 mg Pantoprazole Sodium (Protonix) 40 mg PO QAMAC [facility] Last Admin: 10/19/17 07:19 Dose: 40 mg Fluticasone/Vilanterol [Breo Ellipta] 100-25 Mcg Inhaler 1 dose INH Q24H [facility] Last Admin: 10/19/17 09:58 Dose: Not Given Polyethylene Glycol (Miralax) 17 gm PO DAILYP PRN PRN Reason: Constipation Fluticasone/Salmeterol (Advair 500-50 Diskus) 1 puff INH BID [facility] Last Admin: 10/19/17 09:58 Dose: Not Given Simvastatin (Zocor) 20 mg PO QPM [facility] Last Admin: 10/18/17 21:10 Dose: 20 mg Sodium Chloride (Saline Flush) 10 ml IV Q8 [facility] Last Admin: 10/19/17 05:41 Dose: 10 ml Spironolactone (Aldactone) 25 mg PO QDAY [facility] Last Admin: 10/19/17 08:53 Dose: 25 mg Throat Lozenges (Cepacol) 1 lozenge PO PRN PRN PRN Reason: Sore Throat Trazodone HCl (Desyrel) 50 mg PO HSP PRN PRN Reason: Insomnia Trimethoprim/Sulfamethoxazole (Bactrim Ds) 1 tab PO BID [facility] Last Admin: 10/19/17 08:53 Dose: 1 tab Medical - PN: A/P - Time Spent With Patient Total time spent is greater than 50% in coordination of care (as documented) at patient's floor/unit and/or counseling patient: 15 - 24 minutes - Narrative A/P Narrative: + acute Exacerbation of asthma- clinically improving on bronchodilators and steroids- status post course of Levofloxacin as outpt. CXR: resolved pneumonia possibly persistent asthma due to smoking and exposure to animal dander. patient however very motivated to quit smoking CT scan reviewed possible inflammation, infection, vs fibrosis viral vs pcp pna , PE is neg, Probably will repeat CT as outpatient, pulm consult if patient does not improve much will need long taper at discharge. Acute hypoxic resp failure- on4 L oxygen low complement levels-MARICRUZ positive with nucleolar pattern.autoimmune workup pending, rheumatoid factor is pending, low complements + Acute bronchitis/pneumonia most likely viral CXR showed resolving pneumonia CT scan shows infiltrative pattern, see above Acute Sinusitis0-continue Bactrim + HTN-Continue home meds + Morbid Obesity-states that repeat sleep study didn't show THANH. + Chronic back pain-Continue home meds, avoid IV pain meds + Hyperkalemia-resolved status post Kayexalate DVT prophylaxis: Lovenox Code status: Full plan * lower IV steroids * Supplemental oxygen wean as tolerated * trazodone at bedtime/baclofen 10 mg every morning * Continue Bactrim for sinusitis * Pre-existing medical condition management on home meds * Await autoimmune pane/rheumatoid factor Medical - PN: Qual - VTE Deep Vein Thrombosis/Pulmonary Embolism Present on Admission: No
[2017-10-19] MEDS: ALPRAZolam 0.5 MG TABLET PO PRN ×2 (11:08→21:53)
[2017-10-19] MEDS ORDERED: BISACODYL 10 MG SUPP.RECT PR PRN (11:12)
[2017-10-19] MEDS ORDERED: diphenhydrAMINE 25 MG CAPSULE PO PRN (18:18)
[2017-10-19] MEDS ORDERED: diphenhydrAMINE 25 MG CAPSULE ONE (18:26)
[2017-10-19] MEDS ORDERED: traZODone HCL 50 MG TABLET PO PRN (21:00)
[2017-10-19] MEDS: BACLOFEN 10 MG TABLET PO SCH (21:53)
[2017-10-19] MEDS: SIMVASTATIN 20 MG TABLET PO SCH (21:54)
[2017-10-19] MEDS: DOCUSATE SODIUM 100 MG CAPSULE PO SCH (21:54)
[2017-10-19] MEDS: guaiFENesin/CODEINE 10 ML UDC PO PRN (21:55)
[2017-10-20] MEDS: HYDROcodone/APAP 10/325MG TABLET PO PRN ×3 (01:36→13:58)
[2017-10-20] MEDS: 0.9 % SODIUM CHLORIDE 10 ML SYRINGE IV SCH ×2 (05:01→13:59)
[2017-10-20] MEDS: PANTOPRAZOLE 40 MG TABLET PO SCH (06:52)
[2017-10-20] MEDS: LEVOTHYROXINE 75 MCG TABLET PO SCH (06:52)
[2017-10-20] MEDS: IPRATROPIUM/ALBUTEROL 3 ML AMPUL.NEB NEB SCH ×3 (07:56→15:58)
[2017-10-20] MEDS: BUDESONIDE 0.5 MG/2 ML AMPUL.NEB NEB SCH (07:56)
[2017-10-20] MEDS ORDERED: MAGNESIUM CITRATE 300 ML ORAL.SOL PO ONE (08:37)
[2017-10-20] MEDS: ESTROGENS, CONJUGATED 0.625 MG TABLET PO SCH (08:59)
[2017-10-20] MEDS: NYSTATIN 500,000 UNITS/5 ML ORAL.SUSP SSW SCH ×2 (08:59→15:41)
[2017-10-20] MEDS: IBUPROFEN 200 MG TABLET PO SCH ×2 (08:59→13:53)
[2017-10-20] MEDS: ATENOLOL 50 MG TABLET PO SCH (09:00)
[2017-10-20] MEDS ORDERED: BACLOFEN 10 MG TABLET PO SCH (09:00)
[2017-10-20] MEDS ORDERED: methylPREDNISolone SOD SUCC 125 MG/2 ML VIAL IV SCH (09:00)
[2017-10-20] MEDS: amLODIPine 10 MG TABLET PO SCH (09:01)
[2017-10-20] MEDS: DOCUSATE SODIUM 100 MG CAPSULE PO SCH (09:01)
[2017-10-20] MEDS: CLOPIDOGREL 75 MG TABLET PO SCH (09:01)
[2017-10-20] MEDS: SPIRONOLACTONE 25 MG TABLET PO SCH (09:01)
[2017-10-20] MEDS: FUROSEMIDE 40 MG TABLET PO SCH ×2 (09:02→17:12)
[2017-10-20] MEDS: GABAPENTIN 300 MG CAPSULE PO SCH ×2 (09:02→15:41)
[2017-10-20] MEDS: SULFAMETHOXAZOLE/TRIMETHOPRIM 1 TABLET PO SCH (09:02)
[2017-10-20] MEDS: FLUTICASONE/SALMETEROL 500/50 INHALER #14 INH SCH (09:02)
[2017-10-20] MEDS: ENOXAPARIN 40 MG/0.4 ML SYRINGE SQ SCH (09:03)
[2017-10-20] MEDS: guaiFENesin/CODEINE 10 ML UDC PO PRN (09:10)
[2017-10-20 09:34] LABS: ANCA Screen NEGATIVE (NEGATIVE); DNA AB(DS) Crithidia, IFA NEGATIVE (NEGATIVE); Myeloperoxidase Antibody <1.0 AI (<1.0); Rhuematoid Factor 21 IU/mL (<14); SM Antibody <1.0 NEG AI (SEE COMMENT); Scl-70 <1.0 NEG AI (SEE COMMENT)
[2017-10-20 09:47] LABS: Cyclic Citrullinated Peptide < 16 UNITS
[2017-10-20 10:22] LABS: Mean Cell Volume 93.6 fL (80.0-100.0); Mean Corpuscular HGB Conc 33.4 g/dL (31.0-36.0); Mean Corpuscular Hemoglobin 31.3 pg (26.0-34.0); Platelet Count 327 K/mcL (140-440); RBC 4.78 M/mcL (4.00-5.20); Red Cell Distribution Width 14.5 % (11.5-14.5)
[2017-10-20 10:41] LABS: ALT/SGPT 48 U/l (0-40); Albumin 4.2 gm/dL (3.2-5.2); Albumin/Globulin Ratio 1.8 (1.0-2.3); Alkaline Phosphatase 49 U/L (39-117); Bilirubin,Direct < 0.2 mg/dL (0.0-0.3); Blood Urea Nitrogen 37 mg/dl (6-20); Gamma Glutamyl Transpeptidase 38 U/L (5-36); Uric Acid 4.2 mg/dL (2.5-8.0)
--- NOTE | 2017-10-20 10:52 | Discharge Summary ---
Medical - DS: Prov Patient information: Note initiated : 10/20/17 at 10:49 am Service Date, if different from initiated Date: [] Patient: Esperanza Irwin 56 y/o F admitted on 10/11/17 for SOB, Sepsis Workup/Exacerbation of Asthma. Chief Complaint: [] Date of admission: 10/11/17 00:20 Discharge date: 10/20/17 Primary care physician: Kt Beck Consults: 10/10/17 12:13 Consult to Physician [CONS] Stat Comment: Consulting Provider: Dulce Marx Reason For Exam: Physician to Consult Medical - DS: Meds - Discharge Medications Prescriptions: RX: predniSONE [Prednisone] 40 mg PO QAC #10 tab Sulfamethoxazole/Trimethoprim [Bactrim Ds] 1 tab PO BID #8 tab Active and Home Medications: Home Medications spironolactone 25 mg tablet 25 mg PO QDAY #90 tab 07/09/16 [Rx Confirmed Last Taken Unknown] nitroglycerin 0.4 mg sublingual tablet 0.4 mg SUBLINGUAL Q5MIN PRN #25 tab 10/31 [Rx Confirmed 10/10/17 Last Taken Unknown] albuterol sulfate HFA 90 mcg/actuation aerosol inhaler 90 mcg INHALATION Q6H PRN #54 g 06/13/17 [Rx Confirmed 10/10/17 Last Taken Unknown] simvastatin 20 mg tablet 20 mg PO QPM 90 Days #90 tab 06/13/17 [Rx Confirmed 09/28 Last Taken Unknown] gabapentin 100 mg capsule 300 mg PO TID #270 cap 06/16/17 [Rx Confirmed Last Taken Unknown] amlodipine 5 mg tablet 5 mg PO QDAY #90 tab 07/15/17 [Rx Confirmed 10/10/17 Last Taken Unknown] benazepril 10 mg tablet 10 mg PO QDAY #90 tab 07/15/17 [Rx Confirmed 10/10/17 Last Taken Unknown] cyanocobalamin (vit B-12) 1,000 mcg/mL injection solution 1,000 mcg IM QMONTH # 10 ml 07/15/17 [Rx Confirmed 10/10/17 Last Taken Unknown] furosemide 40 mg tablet 40 mg PO BID #180 tab 07/15/17 [Rx Confirmed 10/10/17 Last Taken Unknown] levothyroxine 75 mcg capsule 75 mcg PO QDAY #90 cap 07/15/17 [Rx Confirmed 10/10 Last Taken Unknown] pantoprazole 40 mg tablet,delayed release 40 mg PO QDAY #90 tab 07/15/17 [Rx Confirmed 10/10/17 Last Taken Unknown] atenolol 25 mg tablet 25 mg PO QDAY #90 tab 07/16/17 [Rx Confirmed 10/10/17 Last Taken Unknown] clopidogrel 75 mg tablet 75 mg PO QDAY #90 tab 07/16/17 [Rx Confirmed 10/10/17 Last Taken Unknown] albuterol sulfate concentrate 2.5 mg/0.5 mL solution for nebulization 2.5 mg INHALATION Q4H PRN #90 each 08/18/17 [Rx Confirmed 10/10/17 Last Taken Unknown] budesonide 0.5 mg/2 mL suspension for nebulization 0.5 mg INHALATION Q12H #60 ml 08/18/17 [Rx Confirmed 10/10/17 Last Taken Unknown] conjugated estrogens 1.25 mg tablet 1.25 mg PO QDAY #90 tab 09/16/17 [Rx Confirmed 10/10/17 Last Taken Unknown] hydrocodone 10 mg-acetaminophen 325 mg tablet 2 tab PO TID PRN #90 tab 09/16/17 [Rx Confirmed 10/10/17 Last Taken Unknown] alprazolam 0.5 mg tablet 0.5 mg PO TID #90 tab 09/26/17 [Rx Confirmed 10/10/17 Last Taken Unknown] fluticasone 100 mcg-vilanterol 25 mcg/dose powder for inhalation 1 inh INHALATION Q24H #30 each 10/10/17 [Rx Confirmed 10/10/17 Last Taken Unknown] ibuprofen 400 mg tablet 400 mg PO Q6H #360 tab 10/10/17 [Rx Confirmed 10/10/17 Last Taken Unknown] Ibuprofen (Pp) 400 mg PO Q6H 10/17/17 [History Confirmed 10/17/17 Last Taken Unknown] RX: Baclofen 20 mg PO HS 10/17/17 [History Confirmed 10/17/17 Last Taken Unknown ] RX: Baclofen [Lioresal] 10 mg PO DAILY #10 tablet 10/20/17 [Rx Last Taken Unknown] RX: predniSONE [Prednisone] 40 mg PO QAMCC #10 tab 10/20/17 [Rx Last Taken Unknown] Sulfamethoxazole/Trimethoprim [Bactrim Ds] 1 tab PO BID #8 tab 10/20/17 [Rx Last Taken Unknown] Medical - DS: Hosp Hospital course: Discharge diagnosis + acute Exacerbation of asthma- clinically improved on bronchodilators and steroids- Acute hypoxic resp failure-clinically improved. Continue 4 L home oxygen low complement levels-MARICRUZ positive with nucleolar pattern.autoimmune workup pending, rheumatoid factor is pending, low complements. follow-up with rheumatology as outpatient for further evaluation + Acute bronchitis/pneumonia most likely viral CXR showed resolving pneumonia CT scan shows infiltrative pattern, see above Acute Sinusitis0-continue Bactrim + HTN-Continue home meds + Morbid Obesity-states that repeat sleep study didn't show THANH. + Chronic back pain-Continue home meds, avoid IV pain meds + Hyperkalemia-resolved status post [facility] Mr. Irwin is a 56 year old F Admitted with asthma/COPD exacerbation October 11: Had stable night on BiPAP, got few hours sleep. This am, breathing better. Still requiring 8L oxygen via HFNC Minimal cough. Afebrile. October 12: Still on 8L O2. Feeling slightly better. C/O CORONADO due to coughing Didn't want use the BIPAP last night. Hemodynamics stable Will transfer to med floor October 13 patient seen examined, no acute overnight events, still on oxygen bottle of xanax found with the patient , pt denies using these meds at hoem, but it seems that there were periods when she was difficult to arouse will not use IV narcotic pain meds and try to verify dosing of oral narcotis too ct chest done neg for pe, does show ? fibrosis, inflammation, infection . CT Sinus done shows sinusitis treated with antibiotics levoflox and zithromax. Procalcitonin is neg Will just use bactrim for sinusitis for now given she is complaining of symptoms , Will likely need repeat CT chest later to see if this is resolved She is still wheezing and needing high levels of oxygen. continue steroids and duonebs. october 14 patient seen examined she complains about a frontal headache, however is able to rest well. atient feels that her breathing is better. She is grateful for the care she has received so far. CT scan findings reviewed with her, not entirely sure if the findings of the CAT scan represent a pneumonia inflammation micro-aspirations. Patient has a low C3 and a low C4 however normal ESR and CRP. Given sinusitis as well as possible changes in the lungs get maricruz with comphrensive panel, check anca levels. pt is already on steroids, doubt if tyhere is an autoimmue process though. check c3 and c4 again. October 15 patient seen examined, after being in the dark in the room, with her daughter and a granddaughter. The patient notes that she still has a headache. In the light bothers her. She has no neck stiffness. No history of any migraine disease. CT scan of the sinuses showed sinusitis. She still notes shortness of breath and cough however this is improving slowly. The patient's lab work is positive for maricruz 1:160 titer positive, nucleolar pattern, low C3 and low C4 again present today. I reviewed the case with rheumatology who did not feel that this is related to lupus. Advised to send a comprehensive panel, vasculitis panel and rheumatoid factor for this patient which was sent Patient status on 5 L of oxygen, still has poor air entry and bilateral expiratory wheezes. He remains on steroids and DuoNeb's. Continue on Bactrim october 16 [t seen examined, did not sleep well last night was tired today notes breathing is better, on 3.5l oxygen now headache improving no other complaints. october 17 Pt seen examined she feels sick today, but no new complaints oxygen needs increased to 5L overnight, changed oral to iv steroids cxr shows improved pna/ infiltrate follow up immunology labs continue on bactrim 10/18-patient sitting on bed. No overnight events. On 4 L oxygen. Admitting the assistance of physical therapy around the nursing station. Tolerating diet. Denies chest pain shortness of breath fever or chills. No diarrhea. On IV steroids. Await autoimmune panel On Bactrim. 10/19-patient doing well however complains of lack of sleep and persistent back pain and spasm. Trazodone for sleep and baclofen 10 mg a.m.ordered for spasm. improved shortness of breath. White count 19.6.on 4 L oxygen. Tolerating physical therapy and ambulating. MARICRUZ positive however extended autoimmune panel pending 10/20-patient doing better. Ambulating. On 4 L oxygen. No overnight fever chills or worsening dyspnea. Persistent constipation requiring bowel protocol. Transition to oral steroids. Discharge instructions as below. patient feels at baseline and agrees to follow with primary care physician and continue antibiotics and medications as advised Discharge diagnosis: . - Time Spent with Patient Total time spent providing and/or coordinating discharge services: Greater than 30 minutes Medical - DS: Exam - Constitutional Vitals: Vital Signs Temp Pulse Pulse Resp BP BP Pulse Ox 10/20/17 08:39 68 18 95 10/20/17 08:00 18 94 10/20/17 07:55 70 18 10/20/17 06:55 97.3 F 69 16 129/70 94 10/20/17 04:29 97.6 F 69 16 123/70 94 10/19/17 23:05 98.8 F 69 14 118/75 95 10/19/17 22:56 69 15 10/19/17 21:08 68 12 10/19/17 20:08 95 10/19/17 20:06 70 13 10/19/17 20:00 98.4 F 63 14 152/97 93 10/19/17 15:50 97.9 F 79 20 122/76 94 10/19/17 15:30 69 18 10/19/17 11:29 65 18 10/19/17 11:25 97.6 F 65 18 118/71 95 Intake and Output 10/19/17 10/20/17 10/20/17 21:59 05:59 13:59 Intake Total 1040 / 1040 20390 Output Total 1900 / 1900 1400 / 1400 Balance -860 / -860 2039 / 2039 -1400 / -1400 Intake: Oral 1040 / 1040 2039 Output: Void Amount 1900 / 1900 1400 / 1400 Other: Meal Dinner Percent of Meal Consumed 100% Feeding Ability Independent # Voids 1 Weight 296 lb Medical - DS: Data Labs on day of discharge: Labs from last 24 hours 10/20/17 10/20/17 10/15/17 09:31 09:31 06:43 WBC 13.1 H RBC 4.78 Hgb 15.0 Hct 44.8 MCV 93.6 MCH 31.3 MCHC 33.4 RDW 14.5 Plt Count 327 MPV 8.9 Total Counted Pending Band Neutrophils % Not Reportable Platelet Estimate Pending RBC Morphology Pending Sodium 133 Potassium 5.1 Chloride 86 L Carbon Dioxide 35 H Anion Gap 12.0 BUN 37 H Creatinine 1.2 H GFR Calculation 50 Glucose 118 H Uric Acid 4.2 Calcium 9.4 Phosphorus 5.3 H Magnesium 2.4 Total Bilirubin 0.3 Direct Bilirubin < 0.2 GGT 38 H AST 23 ALT 48 H Alkaline Phosphatase 49 Lactate Dehydrogenase 325 H Total Protein 6.6 Albumin 4.2 Globulin 2.4 Albumin/Globulin Ratio 1.8 Triglycerides 233 H Rheumatoid Factor Cycl Citrul Peptide IgG < 16 MARICRUZ Screen MARICRUZ Titer MARICRUZ Titer and Pattern ANCA Screen c-ANCA Titer Anti-Proteinase 3 p-ANCA Titer Atypical p-ANCA Titer Myeloperoxidase Ab SS-A Antibody SS-B Antibody Sm (Zaman) Antibody SM/TRADITIONAL [employer] Antibody Scl-70 Antibody Anti-ds DNA IgG Ab Titer Anti-ds DNA (Crithidia) 10/15/17 05:05 WBC RBC Hgb Hct MCV MCH MCHC RDW Plt Count MPV Total Counted Band Neutrophils % Platelet Estimate RBC Morphology Sodium Potassium Chloride Carbon Dioxide Anion Gap BUN Creatinine GFR Calculation Glucose Uric Acid Calcium Phosphorus Magnesium Total Bilirubin Direct Bilirubin GGT AST ALT Alkaline Phosphatase Lactate Dehydrogenase Total Protein Albumin Globulin Albumin/Globulin Ratio Triglycerides Rheumatoid Factor 21 A Cycl Citrul Peptide IgG MARICRUZ Screen Negative MARICRUZ Titer TNP MARICRUZ Titer and Pattern TNP ANCA Screen Negative c-ANCA Titer TNP Anti-Proteinase 3 <1.0 p-ANCA Titer TNP Atypical p-ANCA Titer TNP Myeloperoxidase Ab <1.0 SS-A Antibody <1.0 neg SS-B Antibody <1.0 neg Sm (Zaman) Antibody <1.0 neg SM/TRADITION[employer] [facility] Antibody <1.0 neg Scl-70 Antibody <1.0 neg Anti-ds DNA IgG Ab Titer TNP Anti-ds DNA (Crithidia) Negative Medical - DS: A/P - Patient/Caregiver Discharge Instructions Activity: increase activity as tolerated Diet: Regular Diet Additional Instructions: continue prednisone for 5 days antibiotics for 4 days Follow-up with rheumatology 2 weeks Follow-up PCP in 5 days oxygen @ 4 L. RT to perform exercise oximetry to qualify for home oxygen Please schedule pulmonary function test as outpatient in 3-4 weeks Continue aggressive bowel regimen to prevent constipation Continue fall precautions All meals on chair sitting upright at 90 degrees to prevent aspiration Return to ER if worsening fever chills shortness of breath, diarrhea, bleeding Review risk and side effect profile of medications including antibiotics. Side effect may include mild to severe reaction including rash, diarrhea, cdiff and even which can be prevented by close follow-up with PCP and monitoring for side effects Refrain from smoking and alcohol Continue diet and activity as advised Discussed importance of medication adherence Please review medication list with patient prior to discharge Please schedule follow-up with PCP/Providers prior to discharge and provide printouts Portions of this chart may have been created with [employer] voice recognition software. Occasional wrong-word or ?sound-like? substitutions may have occurred due to the inherent limitations of voice recognition software. Please read the chart carefully and recognize, using context, where the substitutions have occurred. CC- PCP Prescriptions: RX: predniSONE [Prednisone] 40 mg PO QAC #10 tab Sulfamethoxazole/Trimethoprim [Bactrim Ds] 1 tab PO BID #8 tab - Follow up Plan Follow up with: Kt Beck MD [Primary Care Provider] - Disposition: Home, Self-Care Prognosis: Fair Rehab Potential: Fair I certify that the patient requires SNF services: No Overall status at discharge: patient is progressing back to baseline Medical - DS: Qual - VTE Deep Vein Thrombosis/Pulmonary Embolism Present on Admission: No
[2017-10-20 11:14] LABS: Lymphocytes % 20 % (15-49); Monocytes % (Manual) 8 % (1-12); Platelet Estimate NORMAL (NORMAL); RBC Morphology NORMAL (NORMAL); Segmented Neutrophils % 72 % (38-78)
[2017-10-20] MEDS: ALPRAZolam 0.5 MG TABLET PO PRN (13:58)
== END 2017-10-20 17:10 | disposition home or self-care (01) | DRG 202 ==
LOC: ED 10:33 → MEDSUR 10:33 → ICU 10-11 00:15 → MEDSUR 10-12 17:00
PROVIDERS: ADMIT Specialist; ATTEND Internal Medicine